=== PATIENT | male | born 1980 | race Caucasian/White ===

== ENCOUNTER → 2016-09-13 | Outpatient (REF) | payer OTHER ==
[~2016-09-13] MED LIST: ACET325T10 PO; ADV100INH INH; ALBU17IN INH; BUSP15TA47 PO; CIPR500T89 PO; CYMB60CA3 PO; DULC5TAB PO; FISH500C PO; FLAG500T PO; IBUP200T45 PO; MENSTAB10 PO; MOME50SP; NICO14DI3 TD; NORCOTAB PO; ZOFR20TA PO; ZYRT10TA2 PO
[2016-09-13 12:23] LABS: ALBUMIN 3.6 GM/DL (3.2-5.2); ALKALINE PHOSPHATASE 44 U/L (45-117); ALT/SGPT 67 U/L (12-78); ANION GAP 8 MEQ/L (8-16); AST/SGOT 43 U/L (15-37); BILIRUBIN,TOTAL 0.2 MG/DL (0.2-1.0); BLOOD UREA NITROGEN 18 MG/DL (7-18); CALCIUM LEVEL 9.2 MG/DL (8.5-10.1); CARBON DIOXIDE LEVEL 27 MEQ/L (21-32); CHLORIDE LEVEL 107 MEQ/L (98-107); CHOLESTEROL LEVEL 213 MG/DL (<200); CREATININE FOR GFR 0.86 MG/DL (0.70-1.30); GLOMERULAR FILTRATION RATE > 60.0 (>60); GLUCOSE, FASTING 102 MG/DL (70-105); POTASSIUM SERUM 4.4 MEQ/L (3.5-5.1); SODIUM LEVEL 142 MEQ/L (136-145); TOTAL PROTEIN 7.2 GM/DL (6.4-8.2); TRIGLYCERIDES LEVEL 225 MG/DL (<150)
[2016-09-13 13:28] LABS: HIV SCREEN CENTAUR NEGATIVE (NEGATIVE)
== END ==
LOC: M SFHCCLAY 08:39
PROVIDERS: ATTEND Family Medicine
DX: E78.2 Mixed hyperlipidemia (principal); Z00.00 Encounter for general adult medical examination without abnormal findings; I10 Essential (primary) hypertension

== ENCOUNTER 2017-08-04 16:08 | Emergency (ER) | payer OTHER | END 2017-08-04 18:22 | disposition home or self-care (01) | LOC: M ED 16:08 | DX: J02.9 Acute pharyngitis, unspecified (principal) | CPT/HCPCS: 87880 ==

== ENCOUNTER → 2017-10-02 | Outpatient (REF) | payer OTHER ==
[2017-10-02 12:58] LABS: HEMOGLOBIN 15.9 g/dl (13.5-17.5); MEAN CORPUSCULAR HEMOGLOBIN 31.7 pg (27.0-33.0); MEAN CORPUSCULAR HGB CONC 34.6 g/dl (32.0-36.5); MEAN CORPUSCULAR VOLUME 91.6 fl (80.0-96.0); PLATELET COUNT, AUTOMATED 267 10^3/uL (150-450); RED BLOOD COUNT 5.02 10^6/uL (4.30-6.10); RED CELL DISTRIBUTION WIDTH 13.6 % (11.5-14.5); WHITE BLOOD COUNT 6.2 10^3/uL (4.0-10.0)
[2017-10-02 13:56] LABS: ALBUMIN 4.2 GM/DL (3.2-5.2); ALBUMIN/GLOBULIN RATIO 1.17 (1.00-1.93); ALKALINE PHOSPHATASE 48 U/L (45-117); ALT/SGPT 62 U/L (12-78); ANION GAP 7 MEQ/L (8-16); AST/SGOT 38 U/L (7-37); BILIRUBIN,TOTAL 0.5 MG/DL (0.2-1.0); BLOOD UREA NITROGEN 18 MG/DL (7-18); CARBON DIOXIDE LEVEL 24 MEQ/L (21-32); CHLORIDE LEVEL 109 MEQ/L (98-107); CHOLESTEROL LEVEL 182 MG/DL (<200); GLOMERULAR FILTRATION RATE > 60.0 (>60); GLUCOSE, FASTING 94 MG/DL (70-100); HDL CHOLESTEROL 26 MG/DL (>40); NON-HDL-C 156 MG/DL; SODIUM LEVEL 140 MEQ/L (136-145); TOTAL PROTEIN 7.8 GM/DL (6.4-8.2); TRIGLYCERIDES LEVEL 250 MG/DL (<150)
== END ==
LOC: M SFHCPLAZ 10:16
DX: Z00.00 Encounter for general adult medical examination without abnormal findings (principal); E78.2 Mixed hyperlipidemia

== ENCOUNTER → 2018-03-13 | Outpatient (CLI) | payer OTHER | LOC: M OUTALCOH 08:00 | DX: F10.20 Alcohol dependence, uncomplicated (principal) ==

== ENCOUNTER 2018-03-20 13:37 | Outpatient (RCR) | payer OTHER | END 2018-04-17 | LOC: M OUTALCOH 03-27 14:00 | DX: F10.20 Alcohol dependence, uncomplicated (principal) ==

== ENCOUNTER 2018-04-18 16:41 | Outpatient (RCR) | payer OTHER | END 2018-05-17 | LOC: M OUTALCOH 04-24 15:00 | DX: F10.20 Alcohol dependence, uncomplicated (principal) ==

== ENCOUNTER 2018-05-27 15:10 | Outpatient (RCR) | payer OTHER ==
[~2018-05-27 15:10] MED LIST changes: +AMOX500C PO; +CIPR-249 PO; -CIPR500T89 PO; -ZOFR20TA PO; +ZOFR4TAB16 PO; +ZYRT10CA5 PO; -ZYRT10TA2 PO
== END 2018-06-17 ==
LOC: M OUTALCOH 15:10
PROVIDERS: ATTEND Psychiatry & Neurology Psychiatry
DX: F10.20 Alcohol dependence, uncomplicated (principal)

== ENCOUNTER 2018-07-15 16:00 | Outpatient (RCR) | payer OTHER | END 2018-07-18 | LOC: M OUTALCOH 16:00 | PROVIDERS: ATTEND Psychiatry & Neurology Psychiatry | DX: F10.20 Alcohol dependence, uncomplicated (principal) ==

== ENCOUNTER 2018-08-05 14:47 | Outpatient (RCR) | payer OTHER | END 2018-08-15 | LOC: M OUTALCOH 14:47 | PROVIDERS: ATTEND Psychiatry & Neurology Psychiatry | DX: F10.20 Alcohol dependence, uncomplicated (principal) ==

== ENCOUNTER 2018-09-09 13:08 | Outpatient (RCR) | payer OTHER | END 2018-09-15 | LOC: M OUTALCOH 13:08 | PROVIDERS: ATTEND Psychiatry & Neurology Psychiatry | DX: F10.20 Alcohol dependence, uncomplicated (principal) ==

== ENCOUNTER → 2018-10-07 | Outpatient (REF) | payer OTHER ==
[~2018-10-07] MED LIST changes: +HYDR-3715 PO; -NORCOTAB PO
[2018-10-07 11:58] LABS: HEMATOCRIT 49.3 % (42.0-52.0); HEMOGLOBIN 16.1 g/dl (13.5-17.5); MEAN CORPUSCULAR HEMOGLOBIN 30.4 pg (27.0-33.0); MEAN CORPUSCULAR HGB CONC 32.7 g/dl (32.0-36.5); PLATELET COUNT, AUTOMATED 350 10^3/uL (150-450); WHITE BLOOD COUNT 7.2 10^3/uL (4.0-10.0)
[2018-10-07 12:36] LABS: ALBUMIN 4.1 GM/DL (3.2-5.2); ALT/SGPT 118 U/L (12-78); BILIRUBIN,TOTAL 0.3 MG/DL (0.2-1.0); BLOOD UREA NITROGEN 17 MG/DL (7-18); CALCIUM LEVEL 9.2 MG/DL (8.5-10.1); CARBON DIOXIDE LEVEL 25 MEQ/L (21-32); CHLORIDE LEVEL 108 MEQ/L (98-107); CHOLESTEROL LEVEL 242 MG/DL (<200); CREATININE FOR GFR 1.08 MG/DL (0.70-1.30); GLOMERULAR FILTRATION RATE > 60.0 (>60); GLUCOSE, FASTING 78 MG/DL (70-100); HDL CHOLESTEROL 11 MG/DL (>40); LDL CHOLESTEROL 198 MG/DL (<100); NON-HDL-C 231 MG/DL; POTASSIUM SERUM 4.7 MEQ/L (3.5-5.1); SODIUM LEVEL 139 MEQ/L (136-145); TOTAL PROTEIN 7.4 GM/DL (6.4-8.2); TRIGLYCERIDES LEVEL 163 MG/DL (<150)
== END ==
LOC: M SFHCPLAZ 08:39
PROVIDERS: ATTEND Nurse Practitioner Adult Health
DX: E78.2 Mixed hyperlipidemia (principal); Z00.00 Encounter for general adult medical examination without abnormal findings; I10 Essential (primary) hypertension

== ENCOUNTER 2018-10-14 14:40 | Outpatient (RCR) | payer OTHER | END 2018-10-15 | LOC: M OUTALCOH 14:40 | PROVIDERS: ATTEND Psychiatry & Neurology Psychiatry | DX: F10.20 Alcohol dependence, uncomplicated (principal) ==

== ENCOUNTER → 2018-10-18 | Outpatient (CLI) | payer OTHER ==
--- NOTE | 2018-10-18 08:51 | REP ---
Clinical: Elevated liver function tests. Comparison: 02/01/2015. Findings: Liver and pancreas are normal in contour, size, echogenicity without focal hepatic or pancreatic lesions identified. The gallbladder is normal and without gallstones, wall thickening, or pericholecystic fluid. No biliary ductal dilatation is appreciated and the common bile duct measures 3.1 mm diameter. The right kidney is normal in reniform shape without hydronephrosis and measures 14.3 x 6.5 x 4.7 cm. No ascites. Impression: Normal liver/right upper quadrant ultrasound. Electronically Signed by Jeffrey Young MD 10/18/2018 08:44 A
== END ==
LOC: M RAD 07:47
PROVIDERS: ATTEND Nurse Practitioner Adult Health
DX: R74.8 Abnormal levels of other serum enzymes (principal)

== ENCOUNTER 2018-11-29 14:41 | Outpatient (RCR) | payer OTHER | END 2018-12-15 | LOC: M OUTALCOH 14:41 | PROVIDERS: ATTEND Psychiatry & Neurology Psychiatry | DX: F10.20 Alcohol dependence, uncomplicated (principal) ==

== ENCOUNTER → 2019-08-25 | Outpatient (CLI) | payer OTHER ==
[~2019-08-25] MED LIST changes: -ACET325T10 PO; +ACET325T11 PO
--- NOTE | 2019-08-25 19:39 | REPPI ---
Lumbar spine five views: There are no comparisons. There is mild scoliosis convex left, possibly positional. Vertebral body heights and alignment are normal. There is mild disc space narrowing and L2-3 with slight osteophytic formation compatible with mild degenerative disc disease at this level. The remainder of the disc spaces are unremarkable. The pedicles and facet articulations are unremarkable. There is no spondylolysis or spondylolisthesis. The sacroiliac articulations are unremarkable. Impression: Mild degenerative disc disease at L2-3. Otherwise, negative lumbar spine. Electronically Signed by Gil Morel MD 08/25/2019 07:31 P
== END ==
LOC: M PLAIMG 15:26
PROVIDERS: ATTEND Nurse Practitioner Adult Health
DX: M54.16 Radiculopathy, lumbar region (principal)

== ENCOUNTER → 2020-01-05 | Outpatient (CLI) | payer OTHER | LOC: M OUTALCOH 08:28 | PROVIDERS: ATTEND Psychiatry & Neurology Addiction Medicine | DX: Z03.89 Encounter for observation for other suspected diseases and conditions ruled out (principal) ==

== ENCOUNTER 2020-02-03 01:56 | Emergency (ER) | payer OTHER | END 2020-02-03 04:10 | disposition home or self-care (01) | LOC: M ED 01:56 | DX: F22 Delusional disorders (principal); F15.11 Other stimulant abuse, in remission; F32.9 Major depressive disorder, single episode, unspecified; F41.9 Anxiety disorder, unspecified; J45.909 Unspecified asthma, uncomplicated; I10 Essential (primary) hypertension; Z79.899 Other long term (current) drug therapy; Z79.51 Long term (current) use of inhaled steroids; Z88.5 Allergy status to narcotic agent; Z91.018 Allergy to other foods ==

== ENCOUNTER → 2020-02-12 | Outpatient (REF) | payer OTHER | LOC: M LAB REF 10:00 | PROVIDERS: ATTEND Physician Assistant | DX: Z20.828 Contact with and (suspected) exposure to other viral communicable diseases (principal) ==

== ENCOUNTER → 2020-04-19 | Outpatient (REF) | payer OTHER ==
[2020-04-19 17:09] LABS: HEMATOCRIT 42.6 % (42.0-52.0); HEMOGLOBIN 13.9 g/dl (13.5-17.5); MEAN CORPUSCULAR HEMOGLOBIN 29.5 pg (27.0-33.0); MEAN CORPUSCULAR HGB CONC 32.6 g/dl (32.0-36.5); MEAN CORPUSCULAR VOLUME 90.4 fl (80.0-96.0); PLATELET COUNT, AUTOMATED 235 10^3/uL (150-450); RED BLOOD COUNT 4.71 10^6/uL (4.30-6.10); WHITE BLOOD COUNT 8.2 10^3/uL (4.0-10.0)
[2020-04-19 17:29] LABS: ALBUMIN 4.1 GM/DL (3.2-5.2); ALT/SGPT 55 U/L (12-78); BILIRUBIN,TOTAL 0.5 MG/DL (0.2-1.0); BLOOD UREA NITROGEN 20 MG/DL (7-18); CALCIUM LEVEL 9.5 MG/DL (8.5-10.1); CARBON DIOXIDE LEVEL 28 MEQ/L (21-32); CHLORIDE LEVEL 107 MEQ/L (98-107); CREATININE FOR GFR 0.91 MG/DL (0.70-1.30); GLOMERULAR FILTRATION RATE > 60.0 (>60); GLUCOSE, FASTING 98 MG/DL (70-100); POTASSIUM SERUM 4.2 MEQ/L (3.5-5.1); SODIUM LEVEL 139 MEQ/L (136-145); TOTAL PROTEIN 7.5 GM/DL (6.4-8.2)
[2020-04-19 18:20] LABS: HEPATITIS C VIRUS ABY INDEX > 11.0 INDEX (<0.8)
== END ==
LOC: M SFHCPLAZ 13:26
PROVIDERS: ATTEND Nurse Practitioner Adult Health
DX: I10 Essential (primary) hypertension (principal); Z20.5 Contact with and (suspected) exposure to viral hepatitis; R74.8 Abnormal levels of other serum enzymes

== ENCOUNTER → 2020-04-19 | Outpatient (CLI) | payer OTHER ==
--- NOTE | 2020-04-19 15:29 | REP ---
INDICATION: J45.20 MILD INTERMITTENT ASHTMA W/OUT COMPLICATIONS. COMPARISON: PA chest 08/14/2011 TECHNIQUE: Two-view chest. FINDINGS: Lungs are well inflated without infiltrate or effusion seen. There is no nodule or mass and the CP angle sharply defined. No lateral pleural thickening or apical scarring. Heart is not enlarged. The aorta and airway were intact. No widening of the mediastinum. Hilar contours are normal and symmetric. Visualized clavicles, ribs, shoulders and spine without acute finding. IMPRESSION: 1. No acute cardiopulmonary disease. <Electronically signed by Brian Aguilar > 04/19/20 1526
== END ==
LOC: M CLY 13:31
PROVIDERS: ATTEND Nurse Practitioner Adult Health
DX: J45.20 Mild intermittent asthma, uncomplicated (principal)

== ENCOUNTER → 2020-05-20 | Outpatient (REF) | payer OTHER ==
[2020-05-20 17:57] LABS: HEMATOCRIT 43.9 % (42.0-52.0); HEMOGLOBIN 14.5 g/dl (13.5-17.5); MEAN CORPUSCULAR HEMOGLOBIN 29.7 pg (27.0-33.0); PLATELET COUNT, AUTOMATED 307 10^3/uL (150-450); RED BLOOD COUNT 4.88 10^6/uL (4.30-6.10); WHITE BLOOD COUNT 6.4 10^3/uL (4.0-10.0)
[2020-05-20 18:14] LABS: ALBUMIN 3.9 GM/DL (3.2-5.2); ALT/SGPT 32 U/L (12-78); BILIRUBIN,TOTAL 0.3 MG/DL (0.2-1.0); BLOOD UREA NITROGEN 23 MG/DL (7-18); CALCIUM LEVEL 9.4 MG/DL (8.5-10.1); CARBON DIOXIDE LEVEL 28 MEQ/L (21-32); CHLORIDE LEVEL 106 MEQ/L (98-107); CREATININE FOR GFR 0.95 MG/DL (0.70-1.30); GLOMERULAR FILTRATION RATE > 60.0 (>60); GLUCOSE, FASTING 97 MG/DL (70-100); POTASSIUM SERUM 4.5 MEQ/L (3.5-5.1); SODIUM LEVEL 139 MEQ/L (136-145); TOTAL PROTEIN 7.2 GM/DL (6.4-8.2)
[2020-05-20 18:24] LABS: HEPATITIS B SURFACE ANTIBODY POSITIVE (POSITIVE)
[2020-05-20 18:35] LABS: HEPATITIS B SURFACE ANTIGEN NEGATIVE (NEGATIVE)
[2020-05-25 02:08] LABS: HEPATITIS A IgG TOTAL Positive (Negative); HEPATITIS C QUANTITATION HCV Not Detected IU/mL (.)
== END ==
LOC: M SFHCPLAZ 15:43
PROVIDERS: ATTEND Nurse Practitioner Adult Health
DX: Z20.5 Contact with and (suspected) exposure to viral hepatitis (principal)

== ENCOUNTER 2020-07-19 21:11 | Emergency (ER) | payer OTHER ==
[~2020-07-19] VITALS: Ht 177.8 cm; Wt 95.6 kg
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
--- OUTSIDE RECORDS SUMMARY | 2020-07-19 21:18 | CCD ---
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 If such information is present, then the following federally mandated warning applies: This information has been disclosed to you from records protected by federal confidentiality rules (42 CFR part 2). The federal rules prohibit you from making any further disclosure of this information unless further disclosure is expressly permitted by the written consent of the person to whom it pertains or as otherwise permitted by 42 CFR part 2. A general authorization for the release of medical or other information is NOT sufficient for this purpose. The Federal rules restrict any use of the information to criminally investigate or prosecute any alcohol or drug abuse patient.The records that you are about to access may contain highly sensitive health information, the redisclosure of which is protected by Article 27-F of the [facility] Public Health law. If you continue you may have access to information: Regarding HIV / AIDS; Provided by facilities licensed or operated by the [facility] Office of Mental Health; or Provided by the [facility] Office for People With Developmental Disabilities. If such information is present, then the following [facility] mandated warning applies: This information has been disclosed to you from confidential records which are protected by state law. State law prohibits you from making any further disclosure of this information without the specific written consent of the person to whom it pertains, or as otherwise permitted by law. Any unauthorized further disclosure in violation of state law may result in a fine or assisted sentence or both. A general authorization for the release of medical or other information is NOT sufficient authorization for further disc losure. Allergies and Adverse Reactions Type Description Substance Reaction Status Data Source(s ) Food allergy NUTS NUTS [facility] Drug allergy CODEINE CODEINE [facility] fish fish fish swelling in throat Active eCW1 ([facility]) all tree nuts all tree nuts all tree nuts swelling Active eCW1 ([facility]) Peanuts Peanuts Peanuts Sob, throat swelling Active eCW 1 ([facility]) Environmental Environmental Environmental Hives Active eCW1 ([facility]) Ragweed Ragweed Ragweed Rash Active eCW1 ([facility]) Encounters Encounter Providers Location Date Indications Data Source(s ) Unknown [address] [facility] [place] [address] 07/01/2020 12:00:00 AM EST eCW1 ([facility]) Unknown [address] [facility] [place] [address] 06/22/2020 12:00:00 AM EST eCW1 (Formerly [facility]) Outpatient [address] [facility] [place] [address] 05/20/2020 12:00:00 AM EST eCW1 ([facility]) [place] [address] [facility] [address] 05/10/2020 12:00:00 AM EST eCW1 ([facility]) Outpatient Attender: Mary Jo Aleksandar MOORE [facility] 04/26/2020 07:24:00 A M [facility] Outpatient Attender: Mary Jo Aleksandar MOORE [facility] 04/26/2020 07:22:01 A M [facility] Outpatient Attender: Mary Jo Aleksandar DDS ALL 04/21/2020 12:00:09 A M [facility] Outpatient Attender: Mary Jo Aleksandar SHEIKHS ALL 04/20/2020 03:56:02 P M [facility] Outpatient Attender: Mary Jo Manjulademetrius AGUILARS ALL 04/20/2020 03:55:00 P [facility] [address] [facility] [address] 04/15/2020 12:00:00 AM EDT eCW1 ([facility]) [place] [address] [facility] [address] 04/14/2020 12:00:00 AM EDT eCW1 ([facility]) [place] [address] [facility] [address] 04/13/2020 12:00:00 AM EDT eCW1 ([facility]) [place] [address] [facility] [address] 04/06/2020 12:00:00 AM EDT eCW1 ([facility]) [place] [address] [facility] [address] 03/25/2020 12:00:00 AM EDT eCW1 ([facility]) [place] [address] [facility] [address] 03/24/2020 12:00:00 AM EDT eCW1 ([facility]) [place] [address] [facility] [address] 12/17/2019 12:00:00 AM EDT eCW1 ([facility]) [place] [address] [facility] [address] 11/18/2019 12:00:00 AM EDT eCW1 ([facility]) [place] [address] [facility] [address] 11/11/2019 12:00:00 AM EDT eCW1 ([facility]ly [facility]) [facility] [address] [facility] [address] 10/07/2019 12:00:00 AM EDT eCW1 ([facility]) [facility] [place] [address] [facility] [address] 10/06/2019 12:00:00 AM EDT eCW1 ([facility]) Outpatient 09/16/2019 05:10:00 AM EDT [facility] [address] [facility] [address] 09/11/2019 12:00:00 AM EDT eCW1 ([facility]) [facility] [address] [facility] [address] 08/25/2019 12:00:00 AM EDT eCW1 ([facility]) [facility] [address] [facility] [address] 08/18/2019 12:00:00 AM EST eCW1 ([facility]) Immunizations Vaccine Date Status Description Data Source(s) influenza, recombinant, quadrIvalent,injectable, prese rvative free 04/15/2020 05:13:00 PM EDT completed eCW1 ([facility]) influenza, recombinant, quadrIvalent,injectable, prese rvative free 04/15/2020 05:13:00 PM EDT completed eCW1 ([facility]) influenza, recombinant, quadrIvalent,injectable, prese rvative free 04/15/2020 05:13:00 PM EDT completed eCW1 ([facility]) influenza, recombinant, quadrIvalent,injectable, prese rvative free 04/15/2020 05:13:00 PM EDT completed eCW1 ([facility]) influenza, recombinant, quadrIvalent,injectable, prese rvative free 04/15/2020 05:13:00 PM EDT completed eCW1 ([facility]) influenza, recombinant, quadrIvalent,injectable, prese rvative free 04/15/2020 05:13:00 PM EDT completed eCW1 ([facility]) influenza, recombinant, quadrIvalent,injectable, prese rvative free 04/15/2020 05:13:00 PM EDT completed eCW1 ([facility]) influenza, recombinant, quadrIvalent,injectable, prese rvative free 04/15/2020 05:13:00 PM EDT completed eCW1 ([facility]) Medications Medication Brand Name Start Date Product Form Dose Route Admi nistrative Instructions Pharmacy Instructions Status Indications Reaction Description Data Source(s) 800 mg 05/26/2020 12:00:00 AM EST tablet 90 TAKE ONE TABLET BY MOUTH THREE TIMES A DAY NEEDED FOR PAIN -TAKE WITH FOOD OR MILK TAKE ONE TABLET BY MOUTH THREE TIMES A DAY NEEDED FOR PAIN -TAKE WITH FOOD OR MILK SOLD: 05/27/2020 [facility] Trazodone Hydrochloride 50 MG Oral Tablet TraZODone HC l 50 MG TraZODone HCl 50 MG 05/20/2020 12:00:00 AM EST active TraZODone HCl 50 MG eCW1 ([facility]) 50 mg 05/20/2020 12:00:00 AM EST tablet 30 TAKE ONE TABLET BY MOUTH AT BEDTIME NEEDED FOR INSOMNIA TAKE ONE TABLET BY MOUTH AT BEDTIME N EEDED FOR INSOMNIA SOLD: 05/20/2020 [facility] 5 mg 05/20/2020 12:00:00 AM EST tablet 30 TAKE ONE TABLET BY MOUTH EVERY DAY TAKE ONE TABLET BY MOUTH EVERY DAY SOLD: 05/20/2020 [facility] Trazodone Hydrochloride 50 MG Oral Tablet TraZODone HC l 50 MG TraZODone HCl 50 MG 05/20/2020 12:00:00 AM EST active TraZODone HCl 50 MG eCW1 ([facility]) Trazodone Hydrochloride 50 MG Oral Tablet TraZODone HC l 50 MG TraZODone HCl 50 MG 05/20/2020 12:00:00 AM EST active TraZODone HCl 50 MG eCW1 ([facility]) Trazodone Hydrochloride 50 MG Oral Tablet TraZODone HC l 50 MG TraZODone HCl 50 MG 05/20/2020 12:00:00 AM EST active TraZODone HCl 50 MG eCW1 ([facility]) Trazodone Hydrochloride 50 MG Oral Tablet TraZODone HC l 50 MG TraZODone HCl 50 MG 05/20/2020 12:00:00 AM EST active TraZODone HCl 50 MG eCW1 ([facility]) Cyclobenzaprine hydrochloride 10 MG Oral Tablet CYCLOBENZAPR INE HCL 05/07/2020 12:00:00 AM EST tablet 30 TAKE 1 TABLET BY MOUTH BE FORE BEDTIME NEEDED TAKE 1 TABLET BY MOUTH BEFORE BEDTIME NEEDED SOLD: 05/09/2020 [facility] 250-50 mcg/dose 05/07/2020 12:00:00 AM EST blister with bouchra ce 60 INHALE ONE PUFF BY MOUTH TWICE A DAY INHALE ONE PUFF BY MOUTH TWICE A DAY SOLD: 05/09/2020 [facility] 10 mg 05/07/2020 12:00:00 AM EST tablet 30 TAKE ONE TABLET BY MOUTH EVERY DAY TAKE ONE TABLET BY MOUTH EVERY DAY SOLD: 05/09/2020 [facility] 30 mg 05/05/2020 12:00:00 AM EST tablet 60 TAKE ONE TABLET BY MOUTH TWICE A DAY TAKE ONE TABLET BY MOUTH TWICE A DAY SOLD: 05/05/2020 [facility] 90 mcg/actuation 05/05/2020 12:00:00 AM EST HFA aerosol inha ler 8 INHALE ONE PUFF BY MOUTH EVERY 4 HOURS NEEDED INHALE ONE PUFF BY MOUTH EVERY 4 HOURS A S NEEDED SOLD: 05/05/2020 [facility] 30 mg 05/05/2020 12:00:00 AM EST capsule,delayed release (DR/EC) 30 TAKE ONE CAPSULE BY MOUTH EVERY DAY WITH 60MG TAKE ONE CAPSULE BY MOUTH EVERY DAY WITH 60MG SOLD: 05/05/2020 [facility] 90 mcg/actuation 05/05/2020 12:00:00 AM EST HFA aerosol inha ler 8 INHALE ONE PUFF BY MOUTH EVERY 4 HOURS NEEDED INHALE ONE PUFF BY MOUTH EVERY 4 HOURS A S NEEDED SOLD: 05/27/2020 [facility] 5 mg 04/16/2020 12:00:00 AM EDT tablet 30 TAKE ONE TABLET BY MOUTH EVERY DAY TAKE ONE TABLET BY MOUTH EVERY DAY SOLD: 04/18/2020 [facility] Amlodipine 5 MG Oral Tablet Amlodipine Besylate 5 MG Amlodip ine Besylate 5 MG 04/15/2020 12:00:00 AM EDT 1.0 {tablet} active Amlodipine Besylate 5 MG eCW1 ([facility]) Amlodipine 5 MG Oral Tablet Amlodipine Besylate 5 MG Amlodip ine Besylate 5 MG 04/15/2020 12:00:00 AM EDT 1.0 {tablet} active Amlodipine Besylate 5 MG eCW1 ([facility]) Amlodipine 5 MG Oral Tablet Amlodipine Besylate 5 MG Amlodip ine Besylate 5 MG 04/15/2020 12:00:00 AM EDT 1.0 {tablet} active Amlodipine Besylate 5 MG eCW1 ([facility]) 100 mg 04/14/2020 12:00:00 AM EDT tablet 30 TAKE ONE TABLET BY MOUTH EVERY DAY TAKE ONE TABLET BY MOUTH EVERY DAY SOLD: 05/23/2020 [facility] 100 mg 04/14/2020 12:00:00 AM EDT tablet 30 TAKE ONE TABLET BY MOUTH EVERY DAY TAKE ONE TABLET BY MOUTH EVERY DAY SOLD: 04/16/2020 [facility] 60 mg 04/11/2020 12:00:00 AM EDT capsule,delayed release (DR/EC) 30 TAKE ONE CAPSULE BY MOUTH EVERY DAY WITH 30MG =90MG PER DAY TAKE ONE CAPSULE BY MOUTH EVERY DAY WITH 30MG =90MG PER DAY SOLD: 05/09/2020 [facility] 60 mg 04/11/2020 12:00:00 AM EDT capsule,delayed release (DR/EC) 30 TAKE ONE CAPSULE BY MOUTH EVERY DAY WITH 30MG =90MG PER DAY TAKE ONE CAPSULE BY MOUTH EVERY DAY WITH 30MG =90MG PER DAY SOLD: 04/11/2020 [facility] 60 mg 03/08/2020 12:00:00 AM EDT capsule,delayed release (DR/EC) 30 TAKE ONE CAPSULE BY MOUTH EVERY DAY TAKE ONE CAPSULE BY MOUTH EVERY DAY SOLD: 03/08/2020 [facility] Ibuprofen 800 MG Oral Tablet Ibuprofen 800 MG 10/13/2019 12:00:00 A M EDT 1.0 {tablet_with_food_or_milk} active Ibupr ofen 800 MG eCW1 ([facility]) Ibuprofen 800 MG Oral Tablet Ibuprofen 800 MG 10/13/2019 12:00:00 A M EDT 1.0 {tablet_with_food_or_milk} active Ibupr ofen 800 MG eCW1 ([facility]) Ibuprofen 800 MG Oral Tablet Ibuprofen 800 MG 10/13/2019 12:00:00 A M EDT 1.0 {tablet_with_food_or_milk} active Ibupr ofen 800 MG eCW1 ([facility]) Ibuprofen 800 MG Oral Tablet Ibuprofen 800 MG 10/13/2019 12:00:00 A M EDT 1.0 {tablet_with_food_or_milk} active Ibupr ofen 800 MG eCW1 ([facility]) Ibuprofen 800 MG Oral Tablet Ibuprofen 800 MG 10/13/2019 12:00:00 A M EDT 1.0 {tablet_with_food_or_milk} active Ibupr ofen 800 MG eCW1 ([facility]) Ibuprofen 800 MG Oral Tablet Ibuprofen 800 MG 10/13/2019 12:00:00 A M EDT 1.0 {tablet_with_food_or_milk} active Ibupr ofen 800 MG eCW1 ([facility]) Ibuprofen 800 MG Oral Tablet Ibuprofen 800 MG 10/13/2019 12:00:00 A M EDT 1.0 {tablet_with_food_or_milk} active Ibupr ofen 800 MG eCW1 ([facility]) Ibuprofen 800 MG Oral Tablet Ibuprofen 800 MG 10/13/2019 12:00:00 A M EDT 1.0 {tablet_with_food_or_milk} active Ibupr ofen 800 MG eCW1 ([facility]) Ibuprofen 800 MG Oral Tablet Ibuprofen 800 MG 10/13/2019 12:00:00 A M EDT 1.0 {tablet_with_food_or_milk} active Ibupr ofen 800 MG eCW1 ([facility]) Ibuprofen 800 MG Oral Tablet Ibuprofen 800 MG 10/13/2019 12:00:00 A M EDT 1.0 {tablet_with_food_or_milk} active Ibupr ofen 800 MG eCW1 ([facility]) Albuterol Sulfate HFA 108 (90 Base) MCG/ACT Albuterol Sulfate HFA 108 (90 Base) MCG/ACT 10/07/2019 12:00:00 AM EDT 1.0 {puff_as_needed} active Albuterol Sulfate HFA 108 (90 Base) MCG/ACT eCW1 ([facility]) Albuterol Sulfate HFA 108 (90 Base) MCG/ACT Albuterol Sulfate HFA 108 (90 Base) MCG/ACT 10/07/2019 12:00:00 AM EDT 1.0 {puff_as_needed} active Albuterol Sulfate HFA 108 (90 Base) MCG/ACT eCW1 ([facility]) Albuterol Sulfate HFA 108 (90 Base) MCG/ACT Albuterol Sulfate HFA 108 (90 Base) MCG/ACT 10/07/2019 12:00:00 AM EDT 1.0 {puff_as_needed} active Albuterol Sulfate HFA 108 (90 Base) MCG/ACT eCW1 ([facility]) Albuterol Sulfate HFA 108 (90 Base) MCG/ACT Albuterol Sulfate HFA 108 (90 Base) MCG/ACT 10/07/2019 12:00:00 AM EDT active 1 puff as needed eCW1 ([facility]) Albuterol Sulfate HFA 108 (90 Base) MCG/ACT Albuterol Sulfate HFA 108 (90 Base) MCG/ACT 10/07/2019 12:00:00 AM EDT 1.0 {puff_as_needed} active Albuterol Sulfate HFA 108 (90 Base) MCG/ACT eCW1 ([facility]) Albuterol Sulfate HFA 108 (90 Base) MCG/ACT Albuterol Sulfate HFA 108 (90 Base) MCG/ACT 10/07/2019 12:00:00 AM EDT 1.0 {puff_as_needed} active Albuterol Sulfate HFA 108 (90 Base) MCG/ACT eCW1 ([facility]) Albuterol Sulfate HFA 108 (90 Base) MCG/ACT Albuterol Sulfate HFA 108 (90 Base) MCG/ACT 10/07/2019 12:00:00 AM EDT 1.0 {puff_as_needed} active Albuterol Sulfate HFA 108 (90 Base) MCG/ACT eCW1 ([facility]) Albuterol Sulfate HFA 108 (90 Base) MCG/ACT Albuterol Sulfate HFA 108 (90 Base) MCG/ACT 10/07/2019 12:00:00 AM EDT 1.0 {puff_as_needed} active Albuterol Sulfate HFA 108 (90 Base) MCG/ACT eCW1 ([facility]) Albuterol Sulfate HFA 108 (90 Base) MCG/ACT Albuterol Sulfate HFA 108 (90 Base) MCG/ACT 10/07/2019 12:00:00 AM EDT 1.0 {puff_as_needed} active Albuterol Sulfate HFA 108 (90 Base) MCG/ACT eCW1 ([facility]) Albuterol Sulfate HFA 108 (90 Base) MCG/ACT Albuterol Sulfate HFA 108 (90 Base) MCG/ACT 10/07/2019 12:00:00 AM EDT 1.0 {puff_as_needed} active Albuterol Sulfate HFA 108 (90 Base) MCG/ACT eCW1 ([facility]) Prednisone 10 MG Oral Tablet PredniSONE 10 MG PredniSONE 10 MG 08/25/2019 12:00:00 AM EDT active 1 tablet eCW1 ([facility]) nabumetone 500 MG Oral Tablet Nabumetone 500 MG Nabumetone 5 00 MG 08/25/2019 12:00:00 AM EDT 1.0 {tablet} active Na bumetone 500 MG eCW1 ([facility]) Cyclobenzaprine hydrochloride 10 MG Oral Tablet Cyclob enzaprine HCl 10 MG Cyclobenzaprine HCl 10 MG 08/25/2019 12:00:00 AM EDT 1.0 {tablet} active Cyclobenzaprine HCl 10 MG eCW1 ( [facility]) Prednisone 10 MG Oral Tablet PredniSONE 10 MG PredniSONE 10 MG 08/25/2019 12:00:00 AM EDT 1.0 {tablet} suspended PredniSONE 10 MG eCW1 ([facility]) Cyclobenzaprine hydrochloride 10 MG Oral Tablet Cyclob enzaprine HCl 10 MG Cyclobenzaprine HCl 10 MG 08/25/2019 12:00:00 AM EDT 1.0 {tablet} active Cyclobenzaprine HCl 10 MG eCW1 ( [facility]) Cyclobenzaprine hydrochloride 10 MG Oral Tablet Cyclob enzaprine HCl 10 MG Cyclobenzaprine HCl 10 MG 08/25/2019 12:00:00 AM EDT 1.0 {tablet} active Cyclobenzaprine HCl 10 MG eCW1 ( [facility]) Cyclobenzaprine hydrochloride 10 MG Oral Tablet Cyclob enzaprine HCl 10 MG Cyclobenzaprine HCl 10 MG 08/25/2019 12:00:00 AM EDT 1.0 {tablet} active Cyclobenzaprine HCl 10 MG eCW1 ( [facility]) Cyclobenzaprine hydrochloride 10 MG Oral Tablet Cyclob enzaprine HCl 10 MG Cyclobenzaprine HCl 10 MG 08/25/2019 12:00:00 AM EDT 1.0 {tablet} active Cyclobenzaprine HCl 10 MG eCW1 ( [facility]) Prednisone 10 MG Oral Tablet PredniSONE 10 MG PredniSONE 10 MG 08/25/2019 12:00:00 AM EDT 1.0 {tablet} suspended PredniSONE 10 MG eCW1 ([facility]) nabumetone 500 MG Oral Tablet Nabumetone 500 MG Nabumetone 5 00 MG 08/25/2019 12:00:00 AM EDT 1.0 {tablet} active Na bumetone 500 MG eCW1 ([facility]) Cyclobenzaprine hydrochloride 10 MG Oral Tablet Cyclob enzaprine HCl 10 MG Cyclobenzaprine HCl 10 MG 08/25/2019 12:00:00 AM EDT active 1 tablet eCW1 ([facility]) nabumetone 500 MG Oral Tablet Nabumetone 500 MG Nabumetone 5 00 MG 08/25/2019 12:00:00 AM EDT 1.0 {tablet} active Na bumetone 500 MG eCW1 ([facility]) Prednisone 10 MG Oral Tablet PredniSONE 10 MG PredniSONE 10 MG 08/25/2019 12:00:00 AM EDT 1.0 {tablet} suspended PredniSONE 10 MG eCW1 ([facility]) Cyclobenzaprine hydrochloride 10 MG Oral Tablet Cyclob enzaprine HCl 10 MG Cyclobenzaprine HCl 10 MG 08/25/2019 12:00:00 AM EDT 1.0 {tablet} active Cyclobenzaprine HCl 10 MG eCW1 ( [facility]) Cyclobenzaprine hydrochloride 10 MG Oral Tablet Cyclob enzaprine HCl 10 MG Cyclobenzaprine HCl 10 MG 08/25/2019 12:00:00 AM EDT 1.0 {tablet} active Cyclobenzaprine HCl 10 MG eCW1 ( [facility]) Cyclobenzaprine hydrochloride 10 MG Oral Tablet Cyclob enzaprine HCl 10 MG Cyclobenzaprine HCl 10 MG 08/25/2019 12:00:00 AM EDT 1.0 {tablet} active Cyclobenzaprine HCl 10 MG eCW1 ( [facility]) Cyclobenzaprine hydrochloride 10 MG Oral Tablet Cyclob enzaprine HCl 10 MG Cyclobenzaprine HCl 10 MG 08/25/2019 12:00:00 AM EDT 1.0 {tablet} active Cyclobenzaprine HCl 10 MG eCW1 ( [facility]) Cyclobenzaprine hydrochloride 10 MG Oral Tablet Cyclob enzaprine HCl 10 MG Cyclobenzaprine HCl 10 MG 08/25/2019 12:00:00 AM EDT 1.0 {tablet} active Cyclobenzaprine HCl 10 MG eCW1 ( [facility]) Prednisone 10 MG Oral Tablet PredniSONE 10 MG PredniSONE 10 MG 08/25/2019 12:00:00 AM EDT 1.0 {tablet} suspended PredniSONE 10 MG eCW1 ([facility]) nabumetone 500 MG Oral Tablet Nabumetone 500 MG Nabumetone 5 00 MG 08/25/2019 12:00:00 AM EDT active 1 tablet eCW1 ([facility]) Cyclobenzaprine hydrochloride 10 MG Oral Tablet Cyclob enzaprine HCl 10 MG Cyclobenzaprine HCl 10 MG 08/25/2019 12:00:00 AM EDT 1.0 {tablet} active Cyclobenzaprine HCl 10 MG eCW1 ( [facility]) Cyclobenzaprine hydrochloride 10 MG Oral Tablet Cyclob enzaprine HCl 10 MG Cyclobenzaprine HCl 10 MG 08/25/2019 12:00:00 AM EDT active 1 tablet eCW1 ([facility]) Cyclobenzaprine hydrochloride 10 MG Oral Tablet Cyclob enzaprine HCl 10 MG Cyclobenzaprine HCl 10 MG 08/25/2019 12:00:00 AM EDT 1.0 {tablet} active Cyclobenzaprine HCl 10 MG eCW1 ( [facility]) Cyclobenzaprine hydrochloride 10 MG Oral Tablet Cyclob enzaprine HCl 10 MG Cyclobenzaprine HCl 10 MG 08/25/2019 12:00:00 AM EDT 1.0 {tablet} active Cyclobenzaprine HCl 10 MG eCW1 ( [facility]) Cyclobenzaprine hydrochloride 10 MG Oral Tablet Cyclob enzaprine HCl 10 MG Cyclobenzaprine HCl 10 MG 08/25/2019 12:00:00 AM EDT 1.0 {tablet} active Cyclobenzaprine HCl 10 MG eCW1 ( [facility]) Prednisone 10 MG Oral Tablet PredniSONE 10 MG PredniSONE 10 MG 08/25/2019 12:00:00 AM EDT 1.0 {tablet} suspended PredniSONE 10 MG eCW1 ([facility]) Prednisone 10 MG Oral Tablet PredniSONE 10 MG PredniSONE 10 MG 08/25/2019 12:00:00 AM EDT 1.0 {tablet} active Pr edniSONE 10 MG eCW1 ([facility]) nabumetone 500 MG Oral Tablet Nabumetone 500 MG Nabumetone 5 00 MG 08/25/2019 12:00:00 AM EDT 1.0 {tablet} active Na bumetone 500 MG eCW1 ([facility]) nabumetone 500 MG Oral Tablet Nabumetone 500 MG Nabumetone 5 00 MG 08/25/2019 12:00:00 AM EDT 1.0 {tablet} active Na bumetone 500 MG eCW1 ([facility]) nabumetone 500 MG Oral Tablet Nabumetone 500 MG Nabumetone 5 00 MG 08/25/2019 12:00:00 AM EDT 1.0 {tablet} active Na bumetone 500 MG eCW1 ([facility]) Cyclobenzaprine hydrochloride 10 MG Oral Tablet Cyclob enzaprine HCl 10 MG Cyclobenzaprine HCl 10 MG 08/25/2019 12:00:00 AM EDT 1.0 {tablet} active Cyclobenzaprine HCl 10 MG eCW1 ( [facility]) Insurance Providers Payer name Policy type / Coverage type Policy ID Covered green party ID Covered green party's relationship to dailey Policy Dailey Plan Information ROBEL [id number] SP [id number] ROBEL [facility] [place] [id number] S [id number] Managed Care Robel P UNAVAILABLE S UNAVAILABLE Medicaid S UNAVAILABLE S UNAVAILA BLE [facility] [id number] SP [id number] [place] [id number] S [id number] [facility] [id number] SP [id number] ANSI-Not a Secondary Insurance [id number] ANSI-Not a Secondary Insurance [id number] ANSI-Not a Secondary Insurance [id number] ANSI-Not a Secondary Insurance [id number] ANSI-Not a Secondary Insurance [id number] ANSI-Not a Secondary Insurance [id number] ANSI-Not a Secondary Insurance [id number] ANSI-Not a Secondary Insurance [id number] ANSI-Not a Secondary Insurance [id number] ANSI-Not a Secondary Insurance [id number] SELF PAY [id number] SP [id number] PAL DISCT 60% OF CAP CHGS SP UNAVAILABLE S UNAVAILABLE SELF PAY UNAVAILABLE UNAVAILA BLE SELF PAY SP UNAVAILABLE UNAVAILA BLE [id number] Problems, Conditions, and Diagnoses Code Display Name Description Problem Type Effective Dates Data Source(s) G47.00 [id number] Insomnia, unspecified type Problem 0 12:00:00 AM EST eCW1 ([facility]) 521.00 Dental caries Dental caries 04/20/2020 03:54:02 PM EST [facility] M54.41 [id number] Lumbago with sciatica, right side Problem 04/15/2020 12:00:00 AM EDT eCW1 ([facility]) G89.29 [id number] Other chronic pain Problem 04/15/2020 12:00: 00 AM EDT eCW1 ([facility]) M54.32 [id number] Left sided sciatica Problem 08/25/2019 12:00 :00 AM EDT eCW1 ([facility]) M54.32 [id number] Left sided sciatica Problem 08/25/2019 12:00 :00 AM EDT eCW1 ([facility]) Surgeries/Procedures Procedure Description Date Indications Data Source(s) Immunization: Flublok Quadrivalent (18 years & older) 0.5mL IM (Influenza) 04/15/2020 12:00:00 AM EDT eCW1 ([facility]) Results ID Date Data Source [id number] 06/12/2020 12:00:00 AM EST [facility] Name Value Range Interpretation Code Description Data Rox rce(s) Supporting Document(s) SARS coronavirus 2 RNA [Presence] in Res piratory specimen by KATHRYN with probe detection [facility] This lab was ordered by Nicolas Lee and reported by [employer]. ID Date Data Source [id number] 06/12/2020 12:00:00 AM EST [facility] Name Value Range Interpretation Code Description Data Rox rce(s) Supporting Document(s) Carestart Rapid COVID Antigen Test [facility] This lab was reported by Nicolas claudio. ID Date Data Source HEPATITIS C FIBROSURE [id number] 05/20/2020 12:00:00 AM EST eC W1 ([facility]) Name Value Range Interpretation Code Description Data Rox rce(s) Supporting Document(s) 0.03 0.00-0.21 FIBROSIS SCORE eCW1 ([facility]) 0.09 0.00-0.17 NECROINFLAM SCORE eCW1 ([facility]) 130 110-276 ALPHA 2-MACROGLOBULIN eCW1 ([facility]) A0-No activity . NECROINFLAMM GRADE eCW1 ( [facility]) . FIBROSIS STAGE eCW1 ([facility]) 27 0-65 GGT eCW1 ([facility]) 136 17-317 HAPTOGLOBIN eCW1 ([facility]) 161 101-178 APOLIPOPROTEIN A-1 eCW1 ([facility]) 0.2 0.0-1.2 TOTAL BILIRUBIN eCW1 ([facility]) . FIBROSIS SCORING eCW1 ([facility]) 28 0-55 ALT eCW1 ([facility]) . INTERPRETATION eCW1 ([facility]) . NECROINFLAM SCORING eCW1 ([facility]) . LIMITATIONS eCW1 ([facility]) . COMMENT : eCW1 ([facility]) ID Date Data Source HEPATITIS C GENOTYPE 05/20/2020 12:00:00 AM EST eCW1 ([facility]) Name Value Range Interpretation Code Description Data Rox rce(s) Supporting Document(s) TNP . HEPATITIS C VIRUS GENOTYPE eCW 1 ([facility]) . COMMENT FOR HEPC GENOTYPE eCW1 ([facility]) ID Date Data Source HEPATITIS C QUANT BY PCR 05/20/2020 12:00:00 AM EST eCW1 ([facility]) Name Value Range Interpretation Code Description Data Rox rce(s) Supporting Document(s) HCV Not Detected . HEPATITIS C QUANTIT ATION eCW1 ([facility]) TNP . Hepatitis C log10 eCW1 ([facility]) ID Date Data Source HEPATITIS A IgG 05/20/2020 12:00:00 AM EST eCW1 ([facility]) Name Value Range Interpretation Code Description Data Rox rce(s) Supporting Document(s) Positive Negative HEPATITIS A IgG TOTAL eCW 1 ([facility]) ID Date Data Source HEPATITIS B SURFACE ANTIGEN 05/20/2020 12:00:00 AM EST eCW1 ([facility]) Name Value Range Interpretation Code Description Data Rox rce(s) Supporting Document(s) NEGATIVE NEGATIVE HEPATITIS B SURFACE ANTIG EN eCW1 ([facility]) ID Date Data Source HEPATITIS B SURFACE ANTIBODY 05/20/2020 12:00:00 AM EST eCW1 ([facility]) Name Value Range Interpretation Code Description Data Rox rce(s) Supporting Document(s) POSITIVE POSITIVE HEPATITIS B SURFACE ANTIB JANET eCW1 ([facility]) ID Date Data Source Comprehensive Metabolic Profile (CMP) 05/20/2020 12:00:00 AM EST eCW1 ([facility]) Name Value Range Interpretation Code Description Data Rox rce(s) Supporting Document(s) 97 70-100 GLUCOSE, FASTING eCW1 ([facility]) > 60.0 >60 GLOMERULAR FILTRATION RATE eCW 1 ([facility]) 23 7-18 BLOOD UREA NITROGEN eCW1 ([facility]) 139 136-145 SODIUM LEVEL eCW1 (On license of [facility]) 0.95 0.70-1.30 CREATININE FOR GFR eCW1 ([facility]) 4.5 3.5-5.1 POTASSIUM SERUM eCW1 ([facility]) 28 21-32 CARBON DIOXIDE LEVEL eCW1 ([facility]) 106 98-107 CHLORIDE LEVEL eCW1 ([facility]) 74 45-117 ALKALINE PHOSPHATASE eCW1 ([facility]) 11 7-37 AST/SGOT eCW1 ([facility]) 32 12-78 ALT/SGPT eCW1 ([facility]) 9.4 8.5-10.1 CALCIUM LEVEL eCW1 ([facility]) 1.2 ALBUMIN/GLOBULIN RATIO eCW1 ([facility]) 3.9 3.2-5.2 ALBUMIN eCW1 ([facility]) 7.2 6.4-8.2 TOTAL PROTEIN eCW1 ([facility]) 0.3 0.2-1.0 BILIRUBIN,TOTAL eCW1 ([facility]) ID Date Data Source CBC - Complete Blood Count 05/20/2020 12:00:00 AM EST eCW1 ( [facility]) Name Value Range Interpretation Code Description Data Rox rce(s) Supporting Document(s) 6.4 4.0-10.0 WHITE BLOOD COUNT eCW1 ([facility]) 43.9 42.0-52.0 HEMATOCRIT eCW1 ([facility]) 90.0 80.0-96.0 MEAN CORPUSCULAR VOLUME e CW1 ([facility]) 14.5 13.5-17.5 HEMOGLOBIN eCW1 ([facility]) 4.88 4.30-6.10 RED BLOOD COUNT eCW1 ([facility]) 12.8 11.5-14.5 RED CELL DISTRIBUTION WID TH eCW1 ([facility]) 33.0 32.0-36.5 MEAN CORPUSCULAR HGB CONC eCW1 ([facility]) 307 150-450 PLATELET COUNT, AUTOMATED eCW1 ([facility]) 29.7 27.0-33.0 MEAN CORPUSCULAR HEMOGLOB IN eCW1 ([facility]) ID Date Data Source Chest X-ray PA and lateral 04/21/2020 11:22:38 AM EST eCW1 ( [facility]) Name Value Range Interpretation Code Description Data Rox rce(s) Supporting Document(s) Chest X-ray PA and lateral eCW 1 ([facility]) ID Date Data Source [id number] 04/20/2020 02:39:08 PM [facility] Current Problems: Dental caries (ICD-521 .00) (UKG74-E85.9)Current Medications: AMOXICILLIN 500 MG CAPS (AMOXICILLIN) 1 tablet by mouth every 8 hours until gone; Route: ORALCurrent Allergies: * CODEINE (Critical)* NUTS (Critical) Dental Chart: Procedures:Type - CDT Code - Description B - (D0140) Limited oral evaluation - problem focused on Tooth # 5 (Performed by Suzi Nicole DMD) B - (D0220) Intraoral, periapical, first radiographic image on Tooth # 5 (Performed by Suzi Nicole DMD) Treatments:Type - CDT Code - Description T - (D7140) Extraction, erupted tooth or exposed root (elevation and/or forceps removal) on Tooth # 5 (Performed by Suzi Nicole DMD) T - (D7140) Extraction, erupted tooth or exposed root (elevation and/or forceps removal) on Tooth # 4 (Performed by Suzi Nicole DMD) Chart Notes:jlam (Apr 20 2020 3:52PM): Additional PPE requirements due to COVID-19 in the dental setting, N95, surgical mask, hair covering, gown and shield.S: CC:"I have a missing broken tooth on the top right side. I think it is infected. I went to see my doctor due to my cough and swollen glands I had a COVID test and it came back negative and I was told to see the dentist now. My doctor is [facility]."O: RMHx (-)per pt. has a nut allergy, asthma and a persistent cough. HPI: A few days PL:10 BP: 132/74 PA taken #5. #4 and #5 badly broken due to caries into the pulp. Signs of infection present.A: DDS recommends to extract #5 with possible RCT and crown on #4 or to be extracted as well. Pt. opts. to have #4 and 5 extracted DX: #4, 5 broken due to cariesP: scheduled in clinic extraction and placed antibiotics to [facility] in [place].E-scribe Amoxicillin 500mg q8h until gone dispense 21 tabs zero refills Informed Pt about new pain management policy of the clinic regarding about narcotic,told pt to alternate Ibuprophen 600- 800mg and tylenol 500mg every 4 to 6 hrs for pain when needed. Assisted By: AM NV: Extraction. Suzi Nicole DMD by aleksnadra (04/20/2020 3:52 PM): Tooth Notes and Watches: Assessment & Plan Problems:Added: Dental caries (ICD-521.00) ([id number]-T50.9)Medications:AMOXICILLIN 500 MG CAPSMedication Changes:New Prescription:AMOXICILLIN 500 MG CAPS-1 tablet by mouth every 8 hours until gone Qty: 21[Capsule] Refills: 0 Method: ElectronicAllergies:* CODEINE (Critical)* NUTS (Critical) Name Value Range Interpretation Code Description Data Rox rce(s) Supporting Document(s) ID Date Data Source HEPATITIS C ANTIBODY INDEX 04/19/2020 12:00:00 AM EST eCW1 ( [facility]) Name Value Range Interpretation Code Description Data Rox rce(s) Supporting Document(s) > 11.0 <0.8 HEPATITIS C VIRUS BENJIE IND EX eCW1 ([facility]) ID Date Data Source [id number] 02/12/2020 10:00:00 AM EDT [facility] Name Value Range Interpretation Code Description Data Rox rce(s) Supporting Document(s) SARS coronavirus 2 RNA [facility] This lab was ordered by [facility] and reported by [facility]. Procedure Vital Signs ID Date Data Source UNK Name Value Range Interpretation Code Description Data Source(s) Diastolic blood pressure 86 mm[Hg] 86 mm[Hg] eCW1 ([facility]) Systolic blood pressure 122 mm[Hg] 122 mm[Hg] e CW1 ([facility]) Body temperature 98.6 [degF] 98.6 [degF] eCW1 ( [facility]) Respiratory rate 18 /min 18 /min eCW1 ([facility]) Heart rate 100 /min 100 /min eCW1 ([facility]) Body mass index (BMI) [Ratio] 32.42 kg/m2 32.42 kg/m2 eCW1 ([facility]) Body height 70 [in_i] 70 [in_i] eCW1 ([facility]) Body weight 226 [lb_av] 226 [lb_av] eCW1 ([facility]) Diastolic blood pressure 98 mm[Hg] 98 mm[Hg] eCW1 ([facility]) Systolic blood pressure 150 mm[Hg] 150 mm[Hg] e CW1 ([facility]) Body temperature 98 [degF] 98 [degF] eCW1 ([facility]) Respiratory rate 18 /min 18 /min eCW1 ([facility]) Heart rate 98 /min 98 /min eCW1 ([facility]) Body mass index (BMI) [Ratio] 32.85 kg/m2 32.85 kg/m2 eCW1 ([facility]) Body height 70 [in_i] 70 [in_i] eCW1 ([facility]) Body weight 229 [lb_av] 229 [lb_av] eCW1 ([facility]) Diastolic blood pressure 98 mm[Hg] 98 mm[Hg] eCW1 ([facility]) Systolic blood pressure 150 mm[Hg] 150 mm[Hg] e CW1 ([facility]) Body temperature 98 [degF] 98 [degF] eCW1 ([facility]) Respiratory rate 18 /min 18 /min eCW1 ([facility]) Heart rate 98 /min 98 /min eCW1 ([facility]) Body mass index (BMI) [Ratio] 32.85 kg/m2 32.85 kg/m2 eCW1 ([facility]) Body height 70 [in_i] 70 [in_i] eCW1 ([facility]) Body weight 229 [lb_av] 229 [lb_av] eCW1 ([facility]) Diastolic blood pressure 98 mm[Hg] 98 mm[Hg] eCW1 ([facility]) Systolic blood pressure 150 mm[Hg] 150 mm[Hg] e CW1 ([facility]) Body temperature 98 [degF] 98 [degF] eCW1 ([facility]) Respiratory rate 18 /min 18 /min eCW1 ([facility]) Heart rate 98 /min 98 /min eCW1 ([facility]) Body mass index (BMI) [Ratio] 32.85 kg/m2 32.85 kg/m2 eCW1 ([facility]) Body height 70 [in_i] 70 [in_i] eCW1 ([facility]) Body weight 229 [lb_av] 229 [lb_av] eCW1 ([facility]) Diastolic blood pressure 76 mm[Hg] 76 mm[Hg] eCW1 ([facility]) Systolic blood pressure 124 mm[Hg] 124 mm[Hg] e CW1 ([facility]) Body temperature 97 [degF] 97 [degF] eCW1 ([facility]) Respiratory rate 18 /min 18 /min eCW1 ([facility]) Heart rate 120 /min 120 /min eCW1 ([facility]) Body mass index (BMI) [Ratio] 29.55 kg/m2 29.55 kg/m2 eCW1 ([facility]) Body height 70 [in_us] 70 [in_us] eCW1 ([facility]) Body weight Measured 206 [lb_av] 206 [lb_av] eC W1 ([facility]) Patient Treatment Plan of Care Planned Activity Planned Date Details Description Data Source (s) Trazodone Hydrochloride 50 MG Oral Tablet 05/20/2020 12:00:00 AM ES T eCW1 ([facility]) Trazodone Hydrochloride 50 MG Oral Tablet 05/20/2020 12:00:00 AM ES T eCW1 ([facility]) Trazodone Hydrochloride 50 MG Oral Tablet 05/20/2020 12:00:00 AM ES T eCW1 ([facility]) Trazodone Hydrochloride 50 MG Oral Tablet 05/20/2020 12:00:00 AM ES T eCW1 ([facility]) Trazodone Hydrochloride 50 MG Oral Tablet 05/20/2020 12:00:00 AM ES T eCW1 ([facility]) Amlodipine 5 MG Oral Tablet 04/15/2020 12:00:00 AM EDT eCW1 ([facility]) Amlodipine 5 MG Oral Tablet 04/15/2020 12:00:00 AM EDT eCW1 ([facility]) Amlodipine 5 MG Oral Tablet 04/15/2020 12:00:00 AM EDT eCW1 ([facility]) Ibuprofen 800 MG Oral Tablet 10/13/2019 12:00:00 AM EDT eCW1 ([facility]) Albuterol Sulfate HFA 108 (90 Base) MCG/ACT 10/07/2019 12:00:00 AM EDT eCW1 ([facility]) Albuterol Sulfate HFA 108 (90 Base) MCG/ACT 10/07/2019 12:00:00 AM EDT eCW1 ([facility]) Albuterol Sulfate HFA 108 (90 Base) MCG/ACT 10/07/2019 12:00:00 AM EDT eCW1 ([facility]) Albuterol Sulfate HFA 108 (90 Base) MCG/ACT 10/07/2019 12:00:00 AM EDT eCW1 ([facility]) Albuterol Sulfate HFA 108 (90 Base) MCG/ACT 10/07/2019 12:00:00 AM EDT eCW1 ([facility]) Albuterol Sulfate HFA 108 (90 Base) MCG/ACT 10/07/2019 12:00:00 AM EDT eCW1 ([facility]) Albuterol Sulfate HFA 108 (90 Base) MCG/ACT 10/07/2019 12:00:00 AM EDT eCW1 ([facility]) Albuterol Sulfate HFA 108 (90 Base) MCG/ACT 10/07/2019 12:00:00 AM EDT eCW1 ([facility]) Cyclobenzaprine hydrochloride 10 MG Oral Tablet 08/25/2019 12:00:00 AM EDT eCW1 ([facility]) Cyclobenzaprine hydrochloride 10 MG Oral Tablet 08/25/2019 12:00:00 AM EDT eCW1 ([facility]) Cyclobenzaprine hydrochloride 10 MG Oral Tablet 08/25/2019 12:00:00 AM EDT eCW1 ([facility]) Prednisone 10 MG Oral Tablet 08/25/2019 12:00:00 AM EDT eCW1 ([facility]) Cyclobenzaprine hydrochloride 10 MG Oral Tablet 08/25/2019 12:00:00 AM EDT eCW1 ([facility]) nabumetone 500 MG Oral Tablet 08/25/2019 12:00:00 AM EDT eCW1 ([facility]) Cyclobenzaprine hydrochloride 10 MG Oral Tablet 08/25/2019 12:00:00 AM EDT eCW1 ([facility]) Cyclobenzaprine hydrochloride 10 MG Oral Tablet 08/25/2019 12:00:00 AM EDT eCW1 ([facility]) Prednisone 10 MG Oral Tablet 08/25/2019 12:00:00 AM EDT eCW1 ([facility]) nabumetone 500 MG Oral Tablet 08/25/2019 12:00:00 AM EDT eCW1 ([facility]) Cyclobenzaprine hydrochloride 10 MG Oral Tablet 08/25/2019 12:00:00 AM EDT eCW1 ([facility])
[2020-07-19] MEDS ORDERED: VALA1TAB5 (21:38)
[2020-07-19] MEDS ORDERED: TRAZ-252 PO (21:38)
[2020-07-19] MEDS ORDERED: ASPIRIN 81 MG CHEW TABLET PO ONE (21:45)
[2020-07-19 21:56] LABS: BASO % 0.4 % (0.0-1.0); EOS # 0.1 10^3/uL (0.0-0.5); EOS % 0.7 % (0.0-3.0); HEMATOCRIT 37.3 % (42.0-52.0); HEMOGLOBIN 12.4 g/dl (13.5-17.5); LYMPH # 1.5 10^3/uL (1.5-5.0); LYMPH % 18.7 % (24.0-44.0); MEAN CORPUSCULAR HEMOGLOBIN 29.1 pg (27.0-33.0); MEAN CORPUSCULAR HGB CONC 33.2 g/dl (32.0-36.5); MEAN CORPUSCULAR VOLUME 87.6 fl (80.0-96.0); MONO # 0.6 10^3/uL (0.0-0.8); MONO % 6.8 % (0.0-5.0); PLATELET COUNT, AUTOMATED 394 10^3/uL (150-450); RED BLOOD COUNT 4.26 10^6/uL (4.30-6.10); WHITE BLOOD COUNT 8.2 10^3/uL (4.0-10.0)
--- OUTSIDE RECORDS SUMMARY | 2020-07-19 22:05 | CCD ---
Author Author [facility] Organization [facility] Address Unknown Phone Unavailable Care Team Providers Care Cafeteria Table Attendant Name Role Phone Dille, E Mary Jo [...] is protected by Article 27-F of the [facility] Public Health law. If you continue you may have access to information: Regarding HIV / AIDS; Provided by facilities licensed or operated by the [facility] Office of Mental Health; or Provided by the [facility] Office for People With Developmental Disabilities. If such information is present, then the following [facility] mandated warning applies: This information has [...] law may result in a fine or [place] health care facility sentence or both. A general authorization for the release of medical or other information is NOT sufficient authorization for further disc losure. Allergies and Adverse Reactions Type Description Substance Reaction Status Data Source(s ) Food allergy NUTS NUTS [facility] Drug allergy CODEINE CODEINE [facility] fish fish fish swelling in throat Active eCW1 ([facility]) all tree nuts all tree nuts all tree nuts swelling Active eCW1 ([facility]) Peanuts Peanuts Peanuts Sob, throat swelling Active eCW 1 ([facility]) Environmental Environmental Environmental Hives Active eCW1 ([facility]) Ragweed Ragweed Ragweed Rash Active eCW1 ([facility]) Encounters Encounter Providers Location Date Indications Data Source(s ) Unknown [address] [facility] [place] [address] 07/01/2020 12:00:00 AM EST eCW1 ([facility]) Unknown [address] [facility] [place] [address] 06/22/2020 12:00:00 AM EST eCW1 ([facility]) Outpatient [address] [facility] [place] [address] 05/20/2020 12:00:00 AM EST eCW1 ([facility]) [place] [address] [facility] [place] [address] 05/10/2020 12:00:00 AM EST eCW1 ([facility]) Outpatient Attender: Mary Jo Aleksandar MOORE [facility] 04/26/2020 07:24:00 A M [facility] Outpatient Attender: Mary Jo Aleksandar MOORE W[facility]NDC 04/26/2020 07:22:01 A M [facility] Outpatient Attender: Mary Jo Aleksandar DDS ALL 04/21/2020 12:00:09 A M [facility] Outpatient Attender: Mary Jo Aleksandar SHEIKHS ALL 04/20/2020 03:56:02 P M [facility] Outpatient Attender: Mary Jo Aleksandar SHEIKHS ALL 04/20/2020 03:55:00 P [facility] Out[place] [address] [facility] [place] [address] 04/15/2020 12:00:00 AM EDT eCW1 ([facility]) [place] [address] [facility] [place] [address] 04/14/2020 12:00:00 AM EDT eCW1 ([facility]) Unknown [address] [facility] [place] [address] 04/13/2020 12:00:00 AM EDT eCW1 ([facility]) Unknown [address] [facility] [place] [address] 04/06/2020 12:00:00 AM EDT eCW1 ([facility]) Unknown [address] [facility] [place] [address] 03/25/2020 12:00:00 AM EDT eCW1 ([facility]) Unknown [address] [facility] [place] [address] 03/24/2020 12:00:00 AM EDT eCW1 ([facility]) [place] [address] [facility] [place] [address] 12/17/2019 12:00:00 AM EDT eCW1 ([facility]) [place] [address] [facility] [place] [address] 11/18/2019 12:00:00 AM EDT eCW1 ([facility]) [place] [address] [facility] [place] [address] 11/11/2019 12:00:00 AM EDT eCW1 ([facility]) [facility] [place] [address] [facility] [place] [address] 10/07/2019 12:00:00 AM EDT eCW1 ([facility]) [facility] [place] [address] [facility] [place] [address] 10/06/2019 12:00:00 AM EDT eCW1 ([facility]) Outpatient 09/16/2019 05:10:00 AM EDT [facility] [address] [facility] [address] 09/11/2019 12:00:00 AM EDT eCW1 ([facility]) [facility] [place] [address] [facility] [place] [address] 08/25/2019 12:00:00 AM EDT eCW1 ([facility]) [facility] [address] [facility] [address] 08/18/2019 12:00:00 AM EST eCW1 ([facility]) Immunizations Vaccine Date Status Description Data Source(s) influenza, recombinant, quadrIvalent,injectable, prese rvative free 04/15/2020 05:13:00 PM EDT completed eCW1 ([facility]) influenza, recombinant, quadrIvalent,injectable, prese rvative free 04/15/2020 05:13:00 PM EDT completed eCW1 ([facility]) influenza, recombinant, quadrIvalent,injectable, prese rvative free 04/15/2020 05:13:00 PM EDT completed eCW1 ([facility]) influenza, recombinant, quadrIvalent,injectable, prese rvative free 04/15/2020 05:13:00 PM EDT completed eCW1 ([facility]) influenza, recombinant, quadrIvalent,injectable, prese rvative free 04/15/2020 05:13:00 PM EDT completed eCW1 ([facility]) influenza, recombinant, quadrIvalent,injectable, prese rvative free 04/15/2020 05:13:00 PM EDT completed eCW1 ([facility]) influenza, recombinant, quadrIvalent,injectable, prese rvative free 04/15/2020 05:13:00 PM EDT completed eCW1 ([facility]) influenza, recombinant, quadrIvalent,injectable, prese rvative free 04/15/2020 05:13:00 PM EDT completed eCW1 ([facility]) Medications Medication Brand Name Start Date [...] EST active TraZODone HCl 50 MG eCW1 ([facility]) 50 mg 05/20/2020 12:00:00 AM EST tablet [...] EST active TraZODone HCl 50 MG eCW1 ([facility]) Trazodone Hydrochloride 50 MG Oral Tablet TraZODone HC l 50 MG TraZODone HCl 50 MG 05/20/2020 12:00:00 AM EST active TraZODone HCl 50 MG eCW1 ([facility]) Trazodone Hydrochloride 50 MG Oral Tablet TraZODone HC l 50 MG TraZODone HCl 50 MG 05/20/2020 12:00:00 AM EST active TraZODone HCl 50 MG eCW1 ([facility]) Trazodone Hydrochloride 50 MG Oral Tablet TraZODone HC l 50 MG TraZODone HCl 50 MG 05/20/2020 12:00:00 AM EST active TraZODone HCl 50 MG eCW1 ([facility]) Cyclobenzaprine hydrochloride 10 MG Oral Tablet CYCLOBENZAPR [...] {tablet} active Amlodipine Besylate 5 MG eCW1 ([facility]) Amlodipine 5 MG Oral Tablet Amlodipine Besylate 5 MG Amlodip ine Besylate 5 MG 04/15/2020 12:00:00 AM EDT 1.0 {tablet} active Amlodipine Besylate 5 MG eCW1 ([facility]) Amlodipine 5 MG Oral Tablet Amlodipine Besylate 5 MG Amlodip ine Besylate 5 MG 04/15/2020 12:00:00 AM EDT 1.0 {tablet} active Amlodipine Besylate 5 MG eCW1 ([facility]) 100 mg 04/14/2020 12:00:00 AM EDT tablet [...] {tablet_with_food_or_milk} active Ibupr ofen 800 MG eCW1 ([facility]) Ibuprofen 800 MG Oral Tablet Ibuprofen 800 MG 10/13/2019 12:00:00 A M EDT 1.0 {tablet_with_food_or_milk} active Ibupr ofen 800 MG eCW1 ([facility]) Ibuprofen 800 MG Oral Tablet Ibuprofen 800 MG 10/13/2019 12:00:00 A M EDT 1.0 {tablet_with_food_or_milk} active Ibupr ofen 800 MG eCW1 ([facility]) Ibuprofen 800 MG Oral Tablet Ibuprofen 800 MG 10/13/2019 12:00:00 A M EDT 1.0 {tablet_with_food_or_milk} active Ibupr ofen 800 MG eCW1 ([facility]) Ibuprofen 800 MG Oral Tablet Ibuprofen 800 MG 10/13/2019 12:00:00 A M EDT 1.0 {tablet_with_food_or_milk} active Ibupr ofen 800 MG eCW1 ([facility]) Ibuprofen 800 MG Oral Tablet Ibuprofen 800 MG 10/13/2019 12:00:00 A M EDT 1.0 {tablet_with_food_or_milk} active Ibupr ofen 800 MG eCW1 ([facility]) Ibuprofen 800 MG Oral Tablet Ibuprofen 800 MG 10/13/2019 12:00:00 A M EDT 1.0 {tablet_with_food_or_milk} active Ibupr ofen 800 MG eCW1 ([facility]) Ibuprofen 800 MG Oral Tablet Ibuprofen 800 MG 10/13/2019 12:00:00 A M EDT 1.0 {tablet_with_food_or_milk} active Ibupr ofen 800 MG eCW1 ([facility]) Ibuprofen 800 MG Oral Tablet Ibuprofen 800 MG 10/13/2019 12:00:00 A M EDT 1.0 {tablet_with_food_or_milk} active Ibupr ofen 800 MG eCW1 ([facility]) Ibuprofen 800 MG Oral Tablet Ibuprofen 800 MG 10/13/2019 12:00:00 A M EDT 1.0 {tablet_with_food_or_milk} active Ibupr ofen 800 MG eCW1 ([facility]) Albuterol Sulfate HFA 108 (90 Base) MCG/ACT Albuterol Sulfate HFA 108 (90 Base) MCG/ACT 10/07/2019 12:00:00 AM EDT 1.0 {puff_as_needed} active Albuterol Sulfate HFA 108 (90 Base) MCG/ACT eCW1 ([facility]) Albuterol Sulfate HFA 108 (90 Base) MCG/ACT Albuterol Sulfate HFA 108 (90 Base) MCG/ACT 10/07/2019 12:00:00 AM EDT 1.0 {puff_as_needed} active Albuterol Sulfate HFA 108 (90 Base) MCG/ACT eCW1 ([facility]) Albuterol Sulfate HFA 108 (90 Base) MCG/ACT Albuterol Sulfate HFA 108 (90 Base) MCG/ACT 10/07/2019 12:00:00 AM EDT 1.0 {puff_as_needed} active Albuterol Sulfate HFA 108 (90 Base) MCG/ACT eCW1 ([facility]) Albuterol Sulfate HFA 108 (90 Base) MCG/ACT Albuterol Sulfate HFA 108 (90 Base) MCG/ACT 10/07/2019 12:00:00 AM EDT active 1 puff as needed eCW1 ([facility]) Albuterol Sulfate HFA 108 (90 Base) MCG/ACT Albuterol Sulfate HFA 108 (90 Base) MCG/ACT 10/07/2019 12:00:00 AM EDT 1.0 {puff_as_needed} active Albuterol Sulfate HFA 108 (90 Base) MCG/ACT eCW1 ([facility]) Albuterol Sulfate HFA 108 (90 Base) MCG/ACT Albuterol Sulfate HFA 108 (90 Base) MCG/ACT 10/07/2019 12:00:00 AM EDT 1.0 {puff_as_needed} active Albuterol Sulfate HFA 108 (90 Base) MCG/ACT eCW1 ([facility]) Albuterol Sulfate HFA 108 (90 Base) MCG/ACT Albuterol Sulfate HFA 108 (90 Base) MCG/ACT 10/07/2019 12:00:00 AM EDT 1.0 {puff_as_needed} active Albuterol Sulfate HFA 108 (90 Base) MCG/ACT eCW1 ([facility]) Albuterol Sulfate HFA 108 (90 Base) MCG/ACT Albuterol Sulfate HFA 108 (90 Base) MCG/ACT 10/07/2019 12:00:00 AM EDT 1.0 {puff_as_needed} active Albuterol Sulfate HFA 108 (90 Base) MCG/ACT eCW1 ([facility]) Albuterol Sulfate HFA 108 (90 Base) MCG/ACT Albuterol Sulfate HFA 108 (90 Base) MCG/ACT 10/07/2019 12:00:00 AM EDT 1.0 {puff_as_needed} active Albuterol Sulfate HFA 108 (90 Base) MCG/ACT eCW1 ([facility]) Albuterol Sulfate HFA 108 (90 Base) MCG/ACT Albuterol Sulfate HFA 108 (90 Base) MCG/ACT 10/07/2019 12:00:00 AM EDT 1.0 {puff_as_needed} active Albuterol Sulfate HFA 108 (90 Base) MCG/ACT eCW1 ([facility]) Prednisone 10 MG Oral Tablet PredniSONE 10 MG PredniSONE 10 MG 08/25/2019 12:00:00 AM EDT active 1 tablet eCW1 ([facility]) nabumetone 500 MG Oral Tablet Nabumetone 500 MG Nabumetone 5 00 MG 08/25/2019 12:00:00 AM EDT 1.0 {tablet} active Na bumetone 500 MG eCW1 ([facility]) Cyclobenzaprine hydrochloride 10 MG Oral Tablet Cyclob enzaprine HCl 10 MG Cyclobenzaprine HCl 10 MG 08/25/2019 12:00:00 AM EDT 1.0 {tablet} active Cyclobenzaprine HCl 10 MG eCW1 ( [facility]) Prednisone 10 MG Oral Tablet PredniSONE 10 MG PredniSONE 10 MG 08/25/2019 12:00:00 AM EDT 1.0 {tablet} suspended PredniSONE 10 MG eCW1 ([facility]) Cyclobenzaprine hydrochloride 10 MG Oral Tablet Cyclob enzaprine HCl 10 MG Cyclobenzaprine HCl 10 MG 08/25/2019 12:00:00 AM EDT 1.0 {tablet} active Cyclobenzaprine HCl 10 MG eCW1 ( [facility]) Cyclobenzaprine hydrochloride 10 MG Oral Tablet Cyclob enzaprine HCl 10 MG Cyclobenzaprine HCl 10 MG 08/25/2019 12:00:00 AM EDT 1.0 {tablet} active Cyclobenzaprine HCl 10 MG eCW1 ( [facility]) Cyclobenzaprine hydrochloride 10 MG Oral Tablet Cyclob enzaprine HCl 10 MG Cyclobenzaprine HCl 10 MG 08/25/2019 12:00:00 AM EDT 1.0 {tablet} active Cyclobenzaprine HCl 10 MG eCW1 ( [facility]) Cyclobenzaprine hydrochloride 10 MG Oral Tablet Cyclob enzaprine HCl 10 MG Cyclobenzaprine HCl 10 MG 08/25/2019 12:00:00 AM EDT 1.0 {tablet} active Cyclobenzaprine HCl 10 MG eCW1 ( [facility]) Prednisone 10 MG Oral Tablet PredniSONE 10 MG PredniSONE 10 MG 08/25/2019 12:00:00 AM EDT 1.0 {tablet} suspended PredniSONE 10 MG eCW1 ([facility]) nabumetone 500 MG Oral Tablet Nabumetone 500 MG Nabumetone 5 00 MG 08/25/2019 12:00:00 AM EDT 1.0 {tablet} active Na bumetone 500 MG eCW1 ([facility]) Cyclobenzaprine hydrochloride 10 MG Oral Tablet Cyclob enzaprine HCl 10 MG Cyclobenzaprine HCl 10 MG 08/25/2019 12:00:00 AM EDT active 1 tablet eCW1 ([facility]) nabumetone 500 MG Oral Tablet Nabumetone 500 MG Nabumetone 5 00 MG 08/25/2019 12:00:00 AM EDT 1.0 {tablet} active Na bumetone 500 MG eCW1 ([facility]) Prednisone 10 MG Oral Tablet PredniSONE 10 MG PredniSONE 10 MG 08/25/2019 12:00:00 AM EDT 1.0 {tablet} suspended PredniSONE 10 MG eCW1 ([facility]) Cyclobenzaprine hydrochloride 10 MG Oral Tablet Cyclob enzaprine HCl 10 MG Cyclobenzaprine HCl 10 MG 08/25/2019 12:00:00 AM EDT 1.0 {tablet} active Cyclobenzaprine HCl 10 MG eCW1 ( [facility]) Cyclobenzaprine hydrochloride 10 MG Oral Tablet Cyclob enzaprine HCl 10 MG Cyclobenzaprine HCl 10 MG 08/25/2019 12:00:00 AM EDT 1.0 {tablet} active Cyclobenzaprine HCl 10 MG eCW1 ( [facility]) Cyclobenzaprine hydrochloride 10 MG Oral Tablet Cyclob enzaprine HCl 10 MG Cyclobenzaprine HCl 10 MG 08/25/2019 12:00:00 AM EDT 1.0 {tablet} active Cyclobenzaprine HCl 10 MG eCW1 ( [facility]) Cyclobenzaprine hydrochloride 10 MG Oral Tablet Cyclob enzaprine HCl 10 MG Cyclobenzaprine HCl 10 MG 08/25/2019 12:00:00 AM EDT 1.0 {tablet} active Cyclobenzaprine HCl 10 MG eCW1 ( [facility]) Cyclobenzaprine hydrochloride 10 MG Oral Tablet Cyclob enzaprine HCl 10 MG Cyclobenzaprine HCl 10 MG 08/25/2019 12:00:00 AM EDT 1.0 {tablet} active Cyclobenzaprine HCl 10 MG eCW1 ( [facility]) Prednisone 10 MG Oral Tablet PredniSONE 10 MG PredniSONE 10 MG 08/25/2019 12:00:00 AM EDT 1.0 {tablet} suspended PredniSONE 10 MG eCW1 ([facility]) nabumetone 500 MG Oral Tablet Nabumetone 500 MG Nabumetone 5 00 MG 08/25/2019 12:00:00 AM EDT active 1 tablet eCW1 ([facility]) Cyclobenzaprine hydrochloride 10 MG Oral Tablet Cyclob enzaprine HCl 10 MG Cyclobenzaprine HCl 10 MG 08/25/2019 12:00:00 AM EDT 1.0 {tablet} active Cyclobenzaprine HCl 10 MG eCW1 ( [facility]) Cyclobenzaprine hydrochloride 10 MG Oral Tablet Cyclob enzaprine HCl 10 MG Cyclobenzaprine HCl 10 MG 08/25/2019 12:00:00 AM EDT active 1 tablet eCW1 ([facility]) Cyclobenzaprine hydrochloride 10 MG Oral Tablet Cyclob enzaprine HCl 10 MG Cyclobenzaprine HCl 10 MG 08/25/2019 12:00:00 AM EDT 1.0 {tablet} active Cyclobenzaprine HCl 10 MG eCW1 ( [facility]) Cyclobenzaprine hydrochloride 10 MG Oral Tablet Cyclob enzaprine HCl 10 MG Cyclobenzaprine HCl 10 MG 08/25/2019 12:00:00 AM EDT 1.0 {tablet} active Cyclobenzaprine HCl 10 MG eCW1 ( [facility]) Cyclobenzaprine hydrochloride 10 MG Oral Tablet Cyclob enzaprine HCl 10 MG Cyclobenzaprine HCl 10 MG 08/25/2019 12:00:00 AM EDT 1.0 {tablet} active Cyclobenzaprine HCl 10 MG eCW1 ( [facility]) Prednisone 10 MG Oral Tablet PredniSONE 10 MG PredniSONE 10 MG 08/25/2019 12:00:00 AM EDT 1.0 {tablet} suspended PredniSONE 10 MG eCW1 ([facility]) Prednisone 10 MG Oral Tablet PredniSONE 10 MG PredniSONE 10 MG 08/25/2019 12:00:00 AM EDT 1.0 {tablet} active Pr edniSONE 10 MG eCW1 ([facility]) nabumetone 500 MG Oral Tablet Nabumetone 500 MG Nabumetone 5 00 MG 08/25/2019 12:00:00 AM EDT 1.0 {tablet} active Na bumetone 500 MG eCW1 ([facility]) nabumetone 500 MG Oral Tablet Nabumetone 500 MG Nabumetone 5 00 MG 08/25/2019 12:00:00 AM EDT 1.0 {tablet} active Na bumetone 500 MG eCW1 ([facility]) nabumetone 500 MG Oral Tablet Nabumetone 500 MG Nabumetone 5 00 MG 08/25/2019 12:00:00 AM EDT 1.0 {tablet} active Na bumetone 500 MG eCW1 ([facility]) Cyclobenzaprine hydrochloride 10 MG Oral Tablet Cyclob enzaprine HCl 10 MG Cyclobenzaprine HCl 10 MG 08/25/2019 12:00:00 AM EDT 1.0 {tablet} active Cyclobenzaprine HCl 10 MG eCW1 ( [facility]) Insurance Providers Payer name Policy type / Coverage type Policy ID Covered green party ID Covered green party's relationship to dailey Policy Dailey Plan Information JANE [id number] SP [id number] JANE [facility] [place] O [id number] S [id number] Managed Care [employer] P UNAVAILABLE S UNAVAILABLE Medicaid S UNAVAILABLE S UNAVAILA BLE [facility] [id number] SP [id number] [place] [id number] S [id number] JANE [id number] SP [id number] ANSI-Not a Secondary Insurance [id number] ANSI-Not a Secondary Insurance [id number] ANSI-Not a Secondary Insurance [id number] ANSI-Not a Secondary Insurance [id number] ANSI-Not a Secondary Insurance [id number] ANSI-Not a Secondary Insurance [id number] ANSI-Not a Secondary Insurance [id number] ANSI-Not a Secondary Insurance [id number] ANSI-Not a Secondary Insurance [id number] ANSI-Not a Secondary Insurance [id number] SELF PAY [id number] SP [id number] PAL DISCT 60% OF CAP CHGS SP UNAVAILABLE S UNAVAILABLE SELF PAY UNAVAILABLE UNAVAILA BLE SELF PAY SP UNAVAILABLE UNAVAILA BLE [id number] Problems, Conditions, and Diagnoses Code Display Name Description Problem Type Effective Dates Data Source(s) G47.00 [id number] Insomnia, unspecified type Problem 0 12:00:00 AM EST eCW1 ([facility]) 521.00 Dental caries Dental caries 04/20/2020 03:54:02 PM EST [facility] M54.41 [id number] Lumbago with sciatica, right side Problem 04/15/2020 12:00:00 AM EDT eCW1 ([facility]) G89.29 [id number] Other chronic pain Problem 04/15/2020 12:00: 00 AM EDT eCW1 ([facility]) M54.32 [id number] Left sided sciatica Problem 08/25/2019 12:00 :00 AM EDT eCW1 ([facility]) M54.32 [id number] Left sided sciatica Problem 08/25/2019 12:00 :00 AM EDT eCW1 ([facility]) Surgeries/Procedures Procedure Description Date Indications Data Source(s) Immunization: Flublok Quadrivalent (18 years & older) 0.5mL IM (Influenza) 04/15/2020 12:00:00 AM EDT eCW1 ([facility]) Results ID Date Data Source [id number] 06/12/2020 12:00:00 AM EST [facility] Name Value Range Interpretation Code Description Data Rox rce(s) Supporting Document(s) SARS coronavirus 2 RNA [Presence] in Res piratory specimen by KATHRYN with probe detection [facility] This lab was ordered by Nicolas Lee and reported by WITOI. ID Date Data Source [id number] 06/12/2020 12:00:00 AM EST [facility] Name Value Range Interpretation Code Description Data Rox rce(s) Supporting Document(s) Carestart Rapid COVID Antigen Test [facility] This lab was reported by Nicolas claudio. ID Date Data Source HEPATITIS C FIBROSURE [id number] 05/20/2020 12:00:00 AM EST eC W1 ([facility]) Name Value Range Interpretation Code Description Data Rox rce(s) Supporting Document(s) 0.03 0.00-0.21 FIBROSIS SCORE eCW1 ([facility]) 0.09 0.00-0.17 NECROINFLAM SCORE eCW1 ([facility]) 130 110-276 ALPHA 2-MACROGLOBULIN eCW1 ([facility]) A0-No activity . NECROINFLAMM GRADE eCW1 ( [facility]) . FIBROSIS STAGE eCW1 ([facility]) 27 0-65 GGT eCW1 ([facility]) 136 17-317 HAPTOGLOBIN eCW1 (Replaced by [facility]) 161 101-178 APOLIPOPROTEIN A-1 eCW1 ([facility]) 0.2 0.0-1.2 TOTAL BILIRUBIN eCW1 ([facility]) . FIBROSIS SCORING eCW1 ([facility]) 28 0-55 ALT eCW1 ([facility]) . INTERPRETATION eCW1 ([facility]) . NECROINFLAM SCORING eCW1 (Counts include 234 beds at the [facility]) . LIMITATIONS eCW1 (Replaced by [facility]) . COMMENT : eCW1 ([facility]) ID Date Data Source HEPATITIS C GENOTYPE 05/20/2020 12:00:00 AM EST eCW1 ([facility]) Name Value Range Interpretation Code Description Data Rox rce(s) Supporting Document(s) TNP . HEPATITIS C VIRUS GENOTYPE eCW 1 ([facility]) . COMMENT FOR HEPC GENOTYPE eCW1 ([facility]) ID Date Data Source HEPATITIS C QUANT BY PCR 05/20/2020 12:00:00 AM EST eCW1 ([facility]) Name Value Range Interpretation Code Description Data Rox rce(s) Supporting Document(s) HCV Not Detected . HEPATITIS C QUANTIT ATION eCW1 ([facility]) TNP . Hepatitis C log10 eCW1 ([facility]) ID Date Data Source HEPATITIS A IgG 05/20/2020 12:00:00 AM EST eCW1 ([facility]) Name Value Range Interpretation Code Description Data Rox rce(s) Supporting Document(s) Positive Negative HEPATITIS A IgG TOTAL eCW 1 ([facility]) ID Date Data Source HEPATITIS B SURFACE ANTIGEN 05/20/2020 12:00:00 AM EST eCW1 ([facility]) Name Value Range Interpretation Code Description Data Rox rce(s) Supporting Document(s) NEGATIVE NEGATIVE HEPATITIS B SURFACE ANTIG EN eCW1 ([facility]) ID Date Data Source HEPATITIS B SURFACE ANTIBODY 05/20/2020 12:00:00 AM EST eCW1 ([facility]) Name Value Range Interpretation Code Description Data Rox rce(s) Supporting Document(s) POSITIVE POSITIVE HEPATITIS B SURFACE ANTIB JANET eCW1 ([facility]) ID Date Data Source Comprehensive Metabolic Profile (CMP) 05/20/2020 12:00:00 AM EST eCW1 ([facility]) Name Value Range Interpretation Code Description Data Rox rce(s) Supporting Document(s) 97 70-100 GLUCOSE, FASTING eCW1 ([facility]) > 60.0 >60 GLOMERULAR FILTRATION RATE eCW 1 ([facility]) 23 7-18 BLOOD UREA NITROGEN eCW1 (Counts include 234 beds at the [facility]) 139 136-145 SODIUM LEVEL eCW1 ([facility]) 0.95 0.70-1.30 CREATININE FOR GFR eCW1 ([facility]) 4.5 3.5-5.1 POTASSIUM SERUM eCW1 ([facility]) 28 21-32 CARBON DIOXIDE LEVEL eCW1 ([facility]) 106 98-107 CHLORIDE LEVEL eCW1 ([facility]) 74 45-117 ALKALINE PHOSPHATASE eCW1 ([facility]) 11 7-37 AST/SGOT eCW1 ([facility]) 32 12-78 ALT/SGPT eCW1 ([facility]) 9.4 8.5-10.1 CALCIUM LEVEL eCW1 ([facility]) 1.2 ALBUMIN/GLOBULIN RATIO eCW1 ([facility]) 3.9 3.2-5.2 ALBUMIN eCW1 ([facility]) 7.2 6.4-8.2 TOTAL PROTEIN eCW1 ([facility]) 0.3 0.2-1.0 BILIRUBIN,TOTAL eCW1 ([facility]) ID Date Data Source CBC - Complete Blood Count 05/20/2020 12:00:00 AM EST eCW1 ( [facility]) Name Value Range Interpretation Code Description Data Rox rce(s) Supporting Document(s) 6.4 4.0-10.0 WHITE BLOOD COUNT eCW1 ([facility]) 43.9 42.0-52.0 HEMATOCRIT eCW1 ([facility]) 90.0 80.0-96.0 MEAN CORPUSCULAR VOLUME e CW1 ([facility]) 14.5 13.5-17.5 HEMOGLOBIN [facility] Systems) 4.88 4.30-6.10 RED BLOOD COUNT eCW1 ([facility]) 12.8 11.5-14.5 RED CELL DISTRIBUTION WID TH eCW1 ([facility]) 33.0 32.0-36.5 MEAN CORPUSCULAR HGB CONC eCW1 (Formerly [facility]) 307 150-450 PLATELET COUNT, AUTOMATED eCW1 ([facility]ly [facility]) 29.7 27.0-33.0 MEAN CORPUSCULAR HEMOGLOB IN eCW1 (Formerly [facility]) ID Date Data Source Chest X-ray PA and lateral 04/21/2020 11:22:38 AM EST eCW1 ( [facility]) Name Value Range Interpretation Code Description Data Rox rce(s) Supporting Document(s) Chest X-ray PA and lateral eCW 1 ([facility]ly [facility]) ID Date Data Source [id number] 04/20/2020 02:39:08 PM EST [facility] Current Problems: Dental caries (ICD-521 .00) (XAU45-I04.9)Current Medications: AMOXICILLIN 500 MG CAPS (AMOXICILLIN) 1 [...] now. My doctor is [facility] at [facility]."O: RMHx (-)per pt. has a nut allergy, [...] extraction and placed antibiotics to [facility] in [place].E-scribe Amoxicillin 500mg q8h until gone dispense 21 tabs zero refills Informed Pt about new pain management policy of the clinic regarding about narcotic,told pt to alternate Ibuprophen 600- 800mg and tylenol 500mg every 4 to 6 hrs for pain when needed. Assisted By: AM NV: Extraction. Suzi Nicole DMD by aleksandra (04/20/2020 3:52 PM): Tooth Notes and Watches: Assessment & Plan Problems:Added: Dental caries (ICD-521.00) (RCR88-H99.9)Medications:AMOXICILLIN 500 MG CAPSMedication Changes:New Prescription:AMOXICILLIN 500 MG CAPS-1 tablet by mouth every 8 hours until gone Qty: 21[Capsule] Refills: 0 Method: ElectronicAllergies:* CODEINE (Critical)* NUTS (Critical) Name Value Range Interpretation Code Description Data Rox rce(s) Supporting Document(s) ID Date Data Source HEPATITIS C ANTIBODY INDEX 04/19/2020 12:00:00 AM EST eCW1 ( [facility]) Name Value Range Interpretation Code Description Data Rox rce(s) Supporting Document(s) > 11.0 <0.8 HEPATITIS C VIRUS BENJIE IND EX eCW1 (Formerly [facility]) ID Date Data Source [id number] 02/12/2020 10:00:00 AM EDT [facility] Name Value Range Interpretation Code Description Data Rox rce(s) Supporting Document(s) SARS coronavirus 2 RNA [facility] This lab was ordered by [facility] and reported by [facility]. Procedure Vital Signs ID Date Data Source UNK Name Value Range Interpretation Code Description Data Source(s) Diastolic blood pressure 86 mm[Hg] 86 mm[Hg] eCW1 ([facility]ly [facility]) Systolic blood pressure 122 mm[Hg] 122 mm[Hg] e CW1 ([facility]ly [facility]) Body temperature 98.6 [degF] 98.6 [degF] eCW1 ( [facility]) Respiratory rate 18 /min 18 /min eCW1 ([facility]) Heart rate 100 /min 100 /min eCW1 ([facility]) Body mass index (BMI) [Ratio] 32.42 kg/m2 32.42 kg/m2 eCW1 ([facility]ly [facility]) Body height 70 [in_i] 70 [in_i] eCW1 ([facility]) Body weight 226 [lb_av] 226 [lb_av] eCW1 ([facility]) Diastolic blood pressure 98 mm[Hg] 98 mm[Hg] eCW1 ([facility]) Systolic blood pressure 150 mm[Hg] 150 mm[Hg] e CW1 ([facility]) Body temperature 98 [degF] 98 [degF] eCW1 ([facility]) Respiratory rate 18 /min 18 /min eCW1 ([facility]) Heart rate 98 /min 98 /min eCW1 ([facility]) Body mass index (BMI) [Ratio] 32.85 kg/m2 32.85 kg/m2 eCW1 ([facility]) Body height 70 [in_i] 70 [in_i] eCW1 ([facility]) Body weight 229 [lb_av] 229 [lb_av] eCW1 ([facility]) Diastolic blood pressure 98 mm[Hg] 98 mm[Hg] eCW1 ([facility]) Systolic blood pressure 150 mm[Hg] 150 mm[Hg] e CW1 ([facility]) Body temperature 98 [degF] 98 [degF] eCW1 ([facility]) Respiratory rate 18 /min 18 /min eCW1 ([facility]) Heart rate 98 /min 98 /min eCW1 ([facility]) Body mass index (BMI) [Ratio] 32.85 kg/m2 32.85 kg/m2 eCW1 ([facility]) Body height 70 [in_i] 70 [in_i] eCW1 ([facility]) Body weight 229 [lb_av] 229 [lb_av] eCW1 ([facility]) Diastolic blood pressure 98 mm[Hg] 98 mm[Hg] eCW1 ([facility]) Systolic blood pressure 150 mm[Hg] 150 mm[Hg] e CW1 ([facility]) Body temperature 98 [degF] 98 [degF] eCW1 ([facility]) Respiratory rate 18 /min 18 /min eCW1 ([facility]) Heart rate 98 /min 98 /min eCW1 ([facility]) Body mass index (BMI) [Ratio] 32.85 kg/m2 32.85 kg/m2 eCW1 ([facility]) Body height 70 [in_i] 70 [in_i] eCW1 ([facility]) Body weight 229 [lb_av] 229 [lb_av] eCW1 ([facility]) Diastolic blood pressure 76 mm[Hg] 76 mm[Hg] eCW1 ([facility]) Systolic blood pressure 124 mm[Hg] 124 mm[Hg] e CW1 ([facility]) Body temperature 97 [degF] 97 [degF] eCW1 ([facility]) Respiratory rate 18 /min 18 /min eCW1 ([facility]) Heart rate 120 /min 120 /min eCW1 ([facility]) Body mass index (BMI) [Ratio] 29.55 kg/m2 29.55 kg/m2 eCW1 ([facility]) Body height 70 [in_us] 70 [in_us] eCW1 ([facility]) Body weight Measured 206 [lb_av] 206 [lb_av] eC W1 ([facility]ly [facility]) Patient Treatment Plan of Care Planned Activity Planned Date Details Description Data Source (s) Trazodone Hydrochloride 50 MG Oral Tablet 05/20/2020 12:00:00 AM ES T eCW1 ([facility]) Trazodone Hydrochloride 50 MG Oral Tablet 05/20/2020 12:00:00 AM ES T eCW1 ([facility]ly [facility]) Trazodone Hydrochloride 50 MG Oral Tablet 05/20/2020 12:00:00 AM ES T eCW1 ([facility]ly [facility]) Trazodone Hydrochloride 50 MG Oral Tablet 05/20/2020 12:00:00 AM ES T eCW1 ([facility]ly [facility]) Trazodone Hydrochloride 50 MG Oral Tablet 05/20/2020 12:00:00 AM ES T eCW1 ([facility]) Amlodipine 5 MG Oral Tablet 04/15/2020 12:00:00 AM EDT eCW1 ([facility]) Amlodipine 5 MG Oral Tablet 04/15/2020 12:00:00 AM EDT eCW1 ([facility]) Amlodipine 5 MG Oral Tablet 04/15/2020 12:00:00 AM EDT eCW1 ([facility]) Ibuprofen 800 MG Oral Tablet 10/13/2019 12:00:00 AM EDT eCW1 ([facility]ly [facility]) Albuterol Sulfate HFA 108 (90 Base) MCG/ACT 10/07/2019 12:00:00 AM EDT eCW1 ([facility]) Albuterol Sulfate HFA 108 (90 Base) MCG/ACT 10/07/2019 12:00:00 AM EDT eCW1 ([facility]) Albuterol Sulfate HFA 108 (90 Base) MCG/ACT 10/07/2019 12:00:00 AM EDT eCW1 ([facility]) Albuterol Sulfate HFA 108 (90 Base) MCG/ACT 10/07/2019 12:00:00 AM EDT eCW1 ([facility]) Albuterol Sulfate HFA 108 (90 Base) MCG/ACT 10/07/2019 12:00:00 AM EDT eCW1 ([facility]) Albuterol Sulfate HFA 108 (90 Base) MCG/ACT 10/07/2019 12:00:00 AM EDT eCW1 ([facility]) Albuterol Sulfate HFA 108 (90 Base) MCG/ACT 10/07/2019 12:00:00 AM EDT eCW1 ([facility]) Albuterol Sulfate HFA 108 (90 Base) MCG/ACT 10/07/2019 12:00:00 AM EDT eCW1 ([facility]) Cyclobenzaprine hydrochloride 10 MG Oral Tablet 08/25/2019 12:00:00 AM EDT eCW1 ([facility]) Cyclobenzaprine hydrochloride 10 MG Oral Tablet 08/25/2019 12:00:00 AM EDT eCW1 ([facility]) Cyclobenzaprine hydrochloride 10 MG Oral Tablet 08/25/2019 12:00:00 AM EDT eCW1 ([facility]) Prednisone 10 MG Oral Tablet 08/25/2019 12:00:00 AM EDT eCW1 ([facility]) Cyclobenzaprine hydrochloride 10 MG Oral Tablet 08/25/2019 12:00:00 AM EDT eCW1 ([facility]) nabumetone 500 MG Oral Tablet 08/25/2019 12:00:00 AM EDT eCW1 ([facility]) Cyclobenzaprine hydrochloride 10 MG Oral Tablet 08/25/2019 12:00:00 AM EDT eCW1 ([facility]) Cyclobenzaprine hydrochloride 10 MG Oral Tablet 08/25/2019 12:00:00 AM EDT eCW1 ([facility]) Prednisone 10 MG Oral Tablet 08/25/2019 12:00:00 AM EDT eCW1 ([facility]) nabumetone 500 MG Oral Tablet 08/25/2019 12:00:00 AM EDT eCW1 ([facility]) Cyclobenzaprine hydrochloride 10 MG Oral Tablet 08/25/2019 12:00:00 AM EDT eCW1 ([facility])
--- NOTE | 2020-07-19 22:12 | REPVR ---
PROCEDURE INFORMATION: Exam: XR Chest, 1 View Exam date and time: 07/19/2020 9:59 PM Age: 39 years old Clinical indication: Chest pain; Type not specified TECHNIQUE: Imaging protocol: XR of the chest Views: 1 view. COMPARISON: [place] CHEST 2 VIEW 04/19/2020 1:42 PM FINDINGS: Lungs: Degree of lung inflation is normal. No evidence of pulmonary edema. No focal consolidation or parenchymal lung mass. Pleural spaces: No pleural effusion or pneumothorax. Heart/Mediastinum: Cardiac silhouette appears normal. No adenopathy or hilar mass. Bones/joints: Osseous structures show no concerning abnormality. IMPRESSION: No acute or focal cardiopulmonary process. Electronically signed by: Waldo Aguilar On 07/19/2020 22:12:23 PM
[2020-07-19 22:16] VITALS: BP 159/104
[2020-07-19 22:20] LABS: INR 0.99; PROTHROMBIN TIME 13.3 SECONDS (12.5-14.3)
[2020-07-19 22:29] LABS: ALT/SGPT 28 U/L (12-78); BILIRUBIN,DIRECT 0.2 MG/DL (0.0-0.2); BILIRUBIN,TOTAL 0.5 MG/DL (0.2-1.0); BLOOD UREA NITROGEN 28 MG/DL (7-18); CALCIUM LEVEL 10.1 MG/DL (8.5-10.1); CARBON DIOXIDE LEVEL 24 MEQ/L (21-32); CHLORIDE LEVEL 103 MEQ/L (98-107); CK-MB VALUE MASS 11.3 NG/ML (<3.6); CPK CREATINE PHOSPHOKINASE 649 U/L (39-308); CREATININE FOR GFR 1.46 MG/DL (0.70-1.30); GLOMERULAR FILTRATION RATE 57.5 (>60); GLUCOSE, FASTING 85 MG/DL (70-100); LIPASE 74 U/L (73-393); MB/CK RELATIVE INDEX 1.74 (< OR =4); POTASSIUM SERUM 4.5 MEQ/L (3.5-5.1); SODIUM LEVEL 137 MEQ/L (136-145); TOTAL PROTEIN 7.6 GM/DL (6.4-8.2); TROPONIN I < 0.02 NG/ML (< 0.10)
[2020-07-19 22:56] LABS: AMPHETAMINES LEVEL URINE POSITIVE (NEGATIVE); BARBITURATES URINE NEGATIVE (NEGATIVE); BENZODIAZEPINES URINE NEGATIVE (NEGATIVE); CANNABINOIDS URINE POSITIVE (NEGATIVE); COCAINE METABOLITE URINE NEGATIVE (NEGATIVE); METHADONE URINE NEGATIVE (NEGATIVE); OPIATES URINE POSITIVE (NEGATIVE); PHENCYCLIDINE URINE NEGATIVE (NEGATIVE)
--- NOTE | 2020-07-20 05:32 | ECGEPIP ---
[facility] - ED Test Date: 2020-07-19 Pat Name: PHYLLIS JC Department: Room: - Gender: Male Applications Consultant: VIRGINIE : 1980 Requested By: FRED Martin Order Number: [id number] Reading MD: Trevin Shen Measurements Intervals [place] Rate: 121 P: 50 MA: 162 QRS: 60 QRSD: 100 T: 43 QT: 327 QTc: 465 Interpretive Statements SINUS TACHYCARDIA POOR R WAVE PROGRESSION NO PRIORS FOR COMPARISON Electronically Signed on 07-20-2020 5:32:38 EST by Trevin Shen
== END 2020-07-19 22:44 | disposition left against medical advice (07) ==
LOC: M ED 21:11
DX: F19.10 Other psychoactive substance abuse, uncomplicated (principal); R07.9 Chest pain, unspecified; J45.909 Unspecified asthma, uncomplicated; F33.9 Major depressive disorder, recurrent, unspecified; F41.9 Anxiety disorder, unspecified; Z79.899 Other long term (current) drug therapy; Z88.5 Allergy status to narcotic agent; Z91.018 Allergy to other foods

== ENCOUNTER 2020-11-01 11:51 | Emergency (ER) | payer OTHER ==
[~2020-11-01] VITALS: Ht 177.8 cm; Wt 102.3 kg
[~2020-11-01 11:51] MED LIST changes: +TRAZ-252 PO; +VALA1TAB5
[2020-11-01 11:59] VITALS: BP 124/100
[2020-11-01] MEDS ORDERED: BUSP30TA (12:19)
[2020-11-01] MEDS ORDERED: DULO1CAP5 (12:19)
[2020-11-01 14:31] LABS: HEMATOCRIT 43.1 % (42.0-52.0); HEMOGLOBIN 14.5 g/dl (13.5-17.5); MEAN CORPUSCULAR HEMOGLOBIN 29.1 pg (27.0-33.0); MEAN CORPUSCULAR HGB CONC 33.6 g/dl (32.0-36.5); MEAN CORPUSCULAR VOLUME 86.4 fl (80.0-96.0); PLATELET COUNT, AUTOMATED 253 10^3/uL (150-450); RED BLOOD COUNT 4.99 10^6/uL (4.30-6.10); WHITE BLOOD COUNT 5.4 10^3/uL (4.0-10.0)
[2020-11-01 15:04] LABS: ACETAMINOPHEN LEVEL < 2.0 UG/ML (10.0-30.0); ALBUMIN 3.7 GM/DL (3.2-5.2); ALT/SGPT 23 U/L (12-78); BILIRUBIN,DIRECT 0.1 MG/DL (0.0-0.2); BILIRUBIN,TOTAL 0.5 MG/DL (0.2-1.0); BLOOD UREA NITROGEN 15 MG/DL (7-18); CALCIUM LEVEL 8.6 MG/DL (8.5-10.1); CARBON DIOXIDE LEVEL 28 MEQ/L (21-32); CHLORIDE LEVEL 109 MEQ/L (98-107); CREATININE FOR GFR 0.91 MG/DL (0.70-1.30); ETHYL ALCOHOL (ETHANOL) < 0.003 % (0.000-0.010); GLOMERULAR FILTRATION RATE > 60.0 (>60); GLUCOSE, FASTING 79 MG/DL (70-100); SALICYLATE LEVEL < 1.7 MG/DL (5.0-30.0); SODIUM LEVEL 142 MEQ/L (136-145); THYROID STIMULATING HORMONE 0.765 uIU/ML (0.358-3.740)
[2020-11-01 15:44] LABS: AMPHETAMINES LEVEL URINE POSITIVE (NEGATIVE); BARBITURATES URINE NEGATIVE (NEGATIVE); BENZODIAZEPINES URINE NEGATIVE (NEGATIVE); CANNABINOIDS URINE POSITIVE (NEGATIVE); COCAINE METABOLITE URINE NEGATIVE (NEGATIVE); METHADONE URINE NEGATIVE (NEGATIVE); OPIATES URINE NEGATIVE (NEGATIVE); PHENCYCLIDINE URINE NEGATIVE (NEGATIVE)
== END 2020-11-01 18:05 | disposition home or self-care (01) ==
LOC: M ED 11:51
DX: F43.0 Acute stress reaction (principal); F19.10 Other psychoactive substance abuse, uncomplicated; J45.909 Unspecified asthma, uncomplicated; F17.210 Nicotine dependence, cigarettes, uncomplicated; Z88.5 Allergy status to narcotic agent; Z91.018 Allergy to other foods; Z79.899 Other long term (current) drug therapy; Z79.51 Long term (current) use of inhaled steroids